=== PATIENT | female | born 1940 | race Caucasian/White ===

== ENCOUNTER 2020-05-01 08:23 | Outpatient (CLI) | payer MEDICARE, SELFPAY ==
--- NOTE | ~2020-05-01 | MM_ITS ---
EXAMINATION: MM screening rena BI w jojo HISTORY: Screening mammogram TECHNIQUE: Craniocaudal and mediolateral oblique 3-D tomosynthesis images were obtained and synthetic 2-D images were generated. CAD analysis was submitted and interpreted. COMPARISON: Comparison to multiple prior studies sequentially, with oldest reviewed study dated 04/14. BREAST PARENCHYMAL COMPOSITION: There are scattered areas of fibroglandular density. FINDINGS: There is developing focal asymmetry in the mid outer aspect of the right breast, best seen on CC view. The left breast is stable without evidence for malignancy. IMPRESSION: 1. Developing right breast asymmetry. 2. Additional mammographic views and possible breast ultrasound are recommended. BI-RADS Category 0: Incomplete: Needs additional imaging evaluation. Reviewed, dictated and finalized at location A. IMPRESSION: 1. Developing right breast asymmetry. 2. Additional mammographic views and possible breast ultrasound are recommended . BI-RADS Category 0: Incomplete: Needs additional imaging evaluation.
== END 2020-05-01 08:24 | disposition home or self-care (01) ==
LOC: ANHIMG 08:30
PROVIDERS: PCP Family Medicine; Visit Provider Obstetrics & Gynecology
DX: Z12.31 Encounter for screening mammogram for malignant neoplasm of breast (principal)
CPT/HCPCS: 77063; 77067

== ENCOUNTER 2020-05-28 13:23 | Outpatient (CLI) | payer MEDICARE, SELFPAY ==
--- NOTE | ~2020-05-28 | MM_ITS ---
EXAMINATION: MM diagnostic mammo unilat RT HISTORY: Right breast asymmetry on screening mammogram TECHNIQUE: Additional 3-D tomosynthesis images of the right breast were performed and synthetic 2-D i mages were generated. CAD analysis was submitted and interpreted. COMPARISON: 05/11/2020, 04/29/2019, 04/27/2018, 05-09, 04/23/2016, 04/18/2015 FINDINGS: Spot compression of the right breast demonstrates a return to normal fibroglandular appeara nce in the area questioned on screening mammogram. There has been no suspicious interval change. No s uspicious mass, calcification, or architectural distortion are identified. IMPRESSION: 1. No mammographic evidence of malignancy. 2. Recommend routine screening mammography in one year. BI-RADS Category 1: Negative Reviewed, dictated and finalized at location A.
== END 2020-05-28 13:24 | disposition home or self-care (01) ==
LOC: ANHIMG 13:27
PROVIDERS: PCP Family Medicine; Visit Provider Obstetrics & Gynecology
DX: R92.8 Other abnormal and inconclusive findings on diagnostic imaging of breast (principal)
CPT/HCPCS: 77065

== ENCOUNTER 2021-06-05 08:35 | Outpatient (CLI) | payer MEDICARE, SELFPAY ==
--- NOTE | ~2021-06-05 | MM_ITS ---
EXAMINATION: MM screening [facility] BI w jojo HISTORY: Screening mammogram TECHNIQUE: Craniocaudal and mediolateral oblique 3-D tomosynthesis images were obtained and synthetic 2-D images were generated. CAD analysis was submitted and interpreted. COMPARISON: 05/28/2020, 05/11/2020, 04/29/2019, 04/27/2018 BREAST PARENCHYMAL COMPOSITION: There are scattered areas of fibroglandular density. FINDINGS: A stable asymmetry in the outer right breast is considered benign given the lack of interva l change. There is no evidence of suspicious mass, calcification, or architectural distortion to sugg est malignancy in either breast. There has been no suspicious interval change. IMPRESSION: 1. No mammographic evidence of malignancy. 2. Recommend routine screening mammography while the patient remains in good health. BI-RADS Category 2: Benign finding(s). Reviewed, dictated and finalized at location A. IMPRESSION: 1. No mammographic evidence of malignancy. 2. Recommend routine screening mammography while the patient remains in good he alth. BI-RADS Category 2: Benign finding(s).
== END 2021-06-05 08:36 | disposition home or self-care (01) ==
LOC: ANHIMG 08:39
PROVIDERS: PCP Family Medicine; Visit Provider Family Medicine
DX: Z12.31 Encounter for screening mammogram for malignant neoplasm of breast (principal)
CPT/HCPCS: 77063; 77067

== ENCOUNTER 2022-06-10 10:05 | Outpatient (CLI) | payer MEDICARE, SELFPAY ==
--- NOTE | ~2022-06-10 | MM_ITS ---
EXAMINATION: MM screening rena BI w jojo HISTORY: Screening TECHNIQUE: Craniocaudal and mediolateral oblique 3-D tomosynthesis images were obtained and synthetic 2-D images were generated. CAD analysis was submitted and interpreted. COMPARISON: Comparison to multiple prior studies sequentially, with oldest reviewed study dated 12/2016. BREAST PARENCHYMAL COMPOSITION: There are scattered areas of fibroglandular density. FINDINGS: There is no evidence of suspicious mass, calcification, or architectural distortion to sugg est malignancy in either breast. There has been no suspicious interval change. IMPRESSION: 1. No mammographic evidence of malignancy. 2. Recommend routine screening mammography in one year. BI-RADS Category 1: Negative Reviewed, dictated and finalized at location A.
== END 2022-06-10 10:06 | disposition home or self-care (01) ==
LOC: ANHIMG 10:06
PROVIDERS: PCP Family Medicine; Visit Provider Family Medicine
DX: Z12.31 Encounter for screening mammogram for malignant neoplasm of breast (principal)
CPT/HCPCS: 77063; 77067

== ENCOUNTER 2023-08-28 07:28 | Outpatient (CLI) | payer MEDICARE, SELFPAY ==
--- NOTE | ~2023-08-28 | MM_ITS ---
EXAMINATION: MM screening rena BI w jojo HISTORY: Screening mammogram TECHNIQUE: Craniocaudal and mediolateral oblique 3-D tomosynthesis images were obtained and synthetic 2-D images were generated. CAD analysis was submitted and interpreted. COMPARISON: 06/10/2022, 06/05/2021, 05/01/2020 BREAST PARENCHYMAL COMPOSITION:There are scattered areas of fibroglandular density. FINDINGS: No suspicious mass, calcification, or architectural distortion are identified in either kamla ast to suggest malignancy. There has been no suspicious interval change. IMPRESSION: No mammographic evidence of malignancy. Recommend routine screening mammography in one year. BI-RADS Category 1: Negative Reviewed, dictated and finalized at location .
== END 2023-08-28 07:29 | disposition home or self-care (01) ==
LOC: ANHIMG 07:30
PROVIDERS: PCP Family Medicine; Visit Provider Nurse Practitioner Family
DX: Z12.31 Encounter for screening mammogram for malignant neoplasm of breast (principal)
CPT/HCPCS: 77063; 77067

== ENCOUNTER 2024-03-11 08:01 | Outpatient (CLI) | payer MEDICARE, SELFPAY ==
[2024-03-11 19:30] LABS: Alanine Aminotransferase 19 U/L (6-35); Albumin Level 4.3 g/dL (3.5-5.1); Alkaline Phosphatase 101 U/L (38-126); Anion Gap 4 mmol/L (4-12); Aspartate Amino Transferase 44 U/L (14-36); Bilirubin,Total 0.7 mg/dL (0.2-1.3); Blood Urea Nitrogen 16 mg/dL (7-17); Calcium 9.2 mg/dL (8.4-10.2); Carbon Dioxide 29 mmol/L (22-30); Chloride 102 mmol/L (98-107); Estimated Glomerular Filt Rate > 60; Glucose 82 mg/dL (65-110); Potassium 4.2 mmol/L (3.4-5.0); Sodium 135 mmol/L (137-145)
[2024-03-11 19:32] LABS: Basophils Percent Auto 0.6 % (0.2-1.2); Eosinophils Absolute Auto 0.3 K/mm3 (0-0.3); Eosinophils Percent Auto 4.7 % (0-4.4); Hematocrit 41.6 % (37.0-47.0); Hemoglobin 13.4 g/dL (12.0-15.0); Immature Granulocyte Absolute 0.01 K/mm3 (0.00-0.031); Immature Granulocyte Percent A 0.2 % (0-0.5); Lymphocytes Percent Auto 29.8 % (18.3-44.2); Mean Corpuscular HGB Conc 32.2 g/dl (32-36); Mean Corpuscular Hemoglobin 30.2 pg (26-34); Mean Corpuscular Volume 93.7 fl (80-100); Mean Platelet Volume 10.3 fl (7.4-10.4); Monocytes Absolute Auto 0.6 K/mm3 (0.1-0.6); Monocytes Percent Auto 10.8 % (2.6-8.5); Neutrophils Absolute Auto 2.9 K/mm3 (1.3-6.7); Neutrophils Percent Auto 53.9 % (45.5-73.1); Platelet Count Result 232 k/mm3 (150-375); Red Blood Count 4.44 M/mm3 (4.2-5.4); Red Cell Distribution Width 13.2 % (11.5-14.5); White Blood Count 5.4 K/mm3 (4.5-10.0)
== END 2024-03-11 08:02 | disposition home or self-care (01) ==
PROVIDERS: PCP Family Medicine; Visit Provider Nurse Practitioner Family
DX: E78.5 Hyperlipidemia, unspecified (principal); I11.0 Hypertensive heart disease with heart failure; I50.42 Chronic combined systolic (congestive) and diastolic (congestive) heart failure; R30.0 Dysuria; R91.8 Other nonspecific abnormal finding of lung field
CPT/HCPCS: 36415; 80053; 85025; 87077; 87086; 87088

== ENCOUNTER 2024-03-21 10:06 | Emergency (ER) | payer MEDICARE, SELFPAY ==
--- NOTE | ~2024-03-21 | CT_ITS ---
EXAMINATION: CT abdomen pelvis w con DATE: 03/21/2024 12:49 INDICATION: Left lower quadrant pain and nausea. TECHNIQUE: Computed tomography (CT) of the abdomen and pelvis was performed with 100 cc Omnipaque 350 intravenous contrast. The dose-length product was 477.20 mGy-cm. Automated exposure control and iter ative reconstruction technique were employed. COMPARISON: None. FINDINGS: Lung bases unremarkable. Cardiomegaly. No significant pleural or pericardial effusion. Smal l hiatal hernia. The liver, spleen, pancreas, adrenal glands and left kidney are unremarkable. There is a small subcentimeter hypodensity of the right kidney, too small to characterize. There are multip le uterine fibroids, largest measuring 4.1 cm. Colonic diverticulosis without evidence for diverticul itis. No ureteral stones or obstruction. Bladder is unremarkable. No free fluid or free air. No signi ficant vascular abnormality. Gallbladder is present. No lymphadenopathy. IMPRESSION: 1. Enlarged fibroid uterus. 2: Small hiatal hernia. Reviewed, dictated and finalized at location B.
[2024-03-21 11:05] VITALS: BP 165/73; PULSE 65; RESP 16; TEMP 36.2; O2SAT 99
[2024-03-21 11:11] VITALS: BP 176/77; PULSE 66; RESP 14; TEMP 37; O2SAT 100
[2024-03-21 11:27] LABS: Basophils Percent Auto 0.4 % (0.2-1.2); Eosinophils Absolute Auto 0.1 K/mm3 (0-0.3); Eosinophils Percent Auto 0.7 % (0-4.4); Hemoglobin 14.5 g/dL (12.0-15.0); Immature Granulocyte Absolute 0.02 K/mm3 (0.00-0.031); Immature Granulocyte Percent A 0.2 % (0-0.5); Lymphocytes Absolute Auto 1.26 K/mm3 (0.9-3.2); Lymphocytes Percent Auto 15.2 % (18.3-44.2); Mean Corpuscular Hemoglobin 30.4 pg (26-34); Mean Corpuscular Volume 92.2 fl (80-100); Mean Platelet Volume 9.4 fl (7.4-10.4); Monocytes Absolute Auto 0.3 K/mm3 (0.1-0.6); Neutrophils Absolute Auto 6.6 K/mm3 (1.3-6.7); Neutrophils Percent Auto 79.5 % (45.5-73.1); Platelet Count Result 254 k/mm3 (150-375); Red Blood Count 4.77 M/mm3 (4.2-5.4); Red Cell Distribution Width 12.7 % (11.5-14.5); White Blood Count 8.3 K/mm3 (4.5-10.0)
[2024-03-21 11:39] LABS: Lactic Acid Reflex 0.9 mmol/L (0.7-2.0)
--- NOTE | 2024-03-21 12:21 | ED.ABDPAIN ---
HPI - Abdominal Pain General Chief Complaint: Abdominal Pain Stated Complaint: abdominal pain Time Seen by Provider: 03/21/24 11:09 Source: patient Mode of arrival: ambulatory Limitations: no limitations History of Present Illness HPI narrative: Patient is an 83-year-old female who presents the ED with report of left-sided abdominal pain. Patient reports having ongoing/intermittent pain over the last 1 month. States it is mostly present throughout her left lower abdomen, radiates to her left side. She states she was seen by her primary care doctor and told she had strep infection and was started on penicillin VK on 03/14. She denies any change in her symptoms since starting the antibiotics. Reports intermittent constipation, but states she had a bowel movement today. Reported mild nausea today, denies vomiting. Denies fevers. Denies urinary complaints. Denies history of diverticulitis. Related Data Home Medications Medication Instructions Recorded Confirmed furosemide 20 mg tablet 20 mg PO DAILY 12/20/19 02/15/24 aspirin 81 mg tablet,delayed 81 mg PO DAILY 07/23/20 02/15/24 release (Adult Low Dose Aspirin) atorvastatin 10 mg tablet 10 mg PO QHS 01/28/22 02/15/24 multivitamin 1 tablet PO DAILY 02/15/24 02/15/24 lactobacillus combination no.9 4 4,000 mmu cells PO DAILY 03/10/24 03/10/24 billion cell capsule (Adult 50 Plus Probiotic) Allergies Allergy/AdvReac Type Severity Reaction Status Date / Time Gadolinium-Containing Allergy Unknown RASH AFTER Verified 03/21/24 10:06 Contrast Medi MRI Review of Systems Review of Systems: CONSTITUTIONAL: Denies fever, chills, or sweats. GASTROINTESTINAL: See HPI. GENITOURINARY: Denies dysuria or hematuria. MUSCULOSKELETAL: See HPI All systems reviewed & are unremarkable except as noted in HPI and below PMFSH Past Medical History Medical History Abdominal cramping Cancer of skin CHF (congestive heart failure) Chronic combined systolic and diastolic CHF (congestive heart failure) Constipation Diverticulitis Dyslipidemia Environmental allergies Essential (primary) hypertension GERD without esophagitis Left bundle branch block LLQ abdominal pain LLQ cramping Mitral valve insufficiency Osteopenia Pre-diabetes Recurrent aphthous ulcer Streptococcus group B infection Surgical History Surgical History History of cardiac cath 12/25/2012 Family History Family History Mother Heart disease Mother Emphysema lung Father Emphysema lung Social History Social History Smoking status: Never smoker Second hand tobacco smoke exposure: No Alcohol intake: never Alcohol use details: 1 glass of wine consumed socially Substance use: never Substance use type: does not use Lack of Transportation: No Lack of Food: Never True Current Housing: I Have Housing Concerned About Future Housing: No Difficulty Paying Gas/Electric Bills: No Difficulty Paying for Meds: No Currently Unemployed: No Difficulty w/ Childcare or Family Care: No Exam Narrative: GENERAL: Elderly, obese with BMI of 31.1, non-toxic, in no acute distress. HEAD: Normocephalic, atraumatic. RESPIRATORY: Airway patent, respirations nonlabored. Clear to auscultation bilaterally, no rales, rhonchi, wheezing. CARDIOVASCULAR: Regular rate and rhythm without murmurs, rubs, or gallops. ABDOMINAL: Soft, no significant tenderness throughout left lower abdomen, no rebound, nondistended. Normoactive BS. MUSCULOSKELETAL: Moves all extremities. No gross deformities. SKIN: Warm, dry, normal color. NEURO: A&O X3. Speech clear. PSYCHIATRIC: Appropriate mood and affect. Normal interaction. Course Vital Signs Vital signs:
[2024-03-21 12:32] LABS: Alanine Aminotransferase 18 U/L (6-35); Albumin Level 4.5 g/dL (3.5-5.1); Alkaline Phosphatase 102 U/L (38-126); Anion Gap 4 mmol/L (4-12); Aspartate Amino Transferase 24 U/L (14-36); Bilirubin,Total 0.6 mg/dL (0.2-1.3); Blood Urea Nitrogen 11 mg/dL (7-17); Calcium 9.8 mg/dL (8.4-10.2); Carbon Dioxide 29 mmol/L (22-30); Chloride 103 mmol/L (98-107); Estimated CRCL calculation 47 ml/min; Estimated Glomerular Filt Rate > 60; Glucose 113 mg/dL (65-110); Lipase 50 U/L (23-300); Potassium 3.8 mmol/L (3.4-5.0); Sodium 136 mmol/L (137-145)
[2024-03-21 12:39] LABS: Appearance Urine Clear (Clear); Bacteria Urine None Seen /hpf; Bilirubin Urine Negative (Negative); Blood Urine Negative (Negative); Color Urine Yellow (Yellow); Glucose Urine UA Negative (Negative); Ketones Urine Negative (Negative); Leukocyte Esterase Ur 1+ LEU/UL (Negative); Nitrate Urine Negative (Negative); Non Pathogenic Casts 0-2; Protein Urine Negative (Negative); RBC Urine 0-2 /hpf (0-2); Specific Grav Ur 1.005 (1.001-1.035); Squamous Epithelial Cell Urine Moderate /hpf (Few); Urobilinogen Urine 0.2 mg/dL (<2.0); pH Urine 7.5 (5.0-9.0)
[2024-03-21 12:50] LABS: Add Urine Microscopic? YES
[2024-03-21 15:05] VITALS: BP 165/64; PULSE 85; RESP 14; TEMP 36.5; O2SAT 100
== END 2024-03-21 15:08 | disposition home or self-care (01) ==
PROVIDERS: Emergency Provider Physician Assistant; PCP Family Medicine
DX: N30.00 Acute cystitis without hematuria (principal); D25.9 Leiomyoma of uterus, unspecified; I50.9 Heart failure, unspecified; I11.0 Hypertensive heart disease with heart failure; I34.0 Nonrheumatic mitral (valve) insufficiency; E78.5 Hyperlipidemia, unspecified; K21.9 Gastro-esophageal reflux disease without esophagitis; M85.80 Other specified disorders of bone density and structure, unspecified site; R73.03 Prediabetes; Z85.828 Personal history of other malignant neoplasm of skin; Z79.82 Long term (current) use of aspirin; K44.9 Diaphragmatic hernia without obstruction or gangrene
CPT/HCPCS: 36415; 74177; 80053; 81001; 83605; 83690; 85025; 87086; 87088; 99284; Q9967

== ENCOUNTER 2024-08-24 10:10 | Outpatient (CLI) | payer MEDICARE, SELFPAY ==
[2024-08-24 19:08] LABS: Basophils Percent Auto 0.6 % (0.2-1.2); Eosinophils Absolute Auto 0.2 K/mm3 (0-0.3); Eosinophils Percent Auto 3.7 % (0-4.4); Hematocrit 40.6 % (37.0-47.0); Hemoglobin 13.1 g/dL (12.0-15.0); Lymphocytes Absolute Auto 1.88 K/mm3 (0.9-3.2); Lymphocytes Percent Auto 30.3 % (18.3-44.2); Mean Corpuscular HGB Conc 32.3 g/dl (32-36); Mean Corpuscular Hemoglobin 30.6 pg (26-34); Mean Corpuscular Volume 94.9 fl (80-100); Monocytes Absolute Auto 0.7 K/mm3 (0.1-0.6); Neutrophils Absolute Auto 3.4 K/mm3 (1.3-6.7); Neutrophils Percent Auto 54.4 % (45.5-73.1); Platelet Count Result 246 k/mm3 (150-375); Red Blood Count 4.28 M/mm3 (4.2-5.4); Red Cell Distribution Width 13.3 % (11.5-14.5); White Blood Count 6.2 K/mm3 (4.5-10.0)
[2024-08-24 19:46] LABS: Alanine Aminotransferase 25 U/L (6-35); Albumin Level 4.1 g/dL (3.5-5.1); Alkaline Phosphatase 107 U/L (38-126); Anion Gap 5 mmol/L (4-12); Aspartate Amino Transferase 41 U/L (14-36); Bilirubin,Total 0.4 mg/dL (0.2-1.3); Blood Urea Nitrogen 13 mg/dL (7-17); Calcium 9.1 mg/dL (8.4-10.2); Carbon Dioxide 31 mmol/L (22-30); Chloride 101 mmol/L (98-107); Cholesterol 156 mg/dL (0-200); Estimated Glomerular Filt Rate > 60; Glucose 84 mg/dL (65-110); HDL Direct 59 mg/dL; LDL Cholesterol Direct 55 mg/dL; Potassium 4.1 mmol/L (3.4-5.0); Sodium 137 mmol/L (137-145); Triglycerides 138 mg/dL (<150)
[2024-08-24 21:18] LABS: Hemoglobin A1C 5.6 % (<5.7)
== END 2024-08-24 10:11 | disposition home or self-care (01) ==
LOC: ANHGOSHLAB 10:11
PROVIDERS: PCP Family Medicine; Visit Provider Nurse Practitioner Family
DX: E78.5 Hyperlipidemia, unspecified (principal); I10 Essential (primary) hypertension; R73.03 Prediabetes; K59.00 Constipation, unspecified
CPT/HCPCS: 36415; 80053; 80061; 83036; 84443; 85025

== ENCOUNTER 2024-08-30 07:34 | Outpatient (CLI) | payer MEDICARE, SELFPAY ==
--- NOTE | ~2024-08-30 | MM_ITS ---
EXAMINATION: MM screening rena BI w jojo HISTORY: Screening TECHNIQUE: Craniocaudal and mediolateral oblique 3-D tomosynthesis images were obtained and synthetic 2-D images were generated. CAD analysis was submitted and interpreted. COMPARISON: Comparison to multiple prior studies sequentially, with oldest reviewed study dated 05/2019. BREAST PARENCHYMAL COMPOSITION: Not dense: There are scattered areas of fibroglandular density. FINDINGS: There is no evidence of suspicious mass, calcification, or architectural distortion to sugg est malignancy in either breast. There has been no suspicious interval change. IMPRESSION: 1. No mammographic evidence of malignancy. 2. Recommend routine screening mammography in one year. BI-RADS Category 1: Negative Reviewed, dictated and finalized at location B.
== END 2024-08-30 07:35 | disposition home or self-care (01) ==
LOC: ANHIMG 07:36
PROVIDERS: PCP Family Medicine; Visit Provider Family Medicine
DX: Z12.31 Encounter for screening mammogram for malignant neoplasm of breast (principal)
CPT/HCPCS: 77063; 77067

== ENCOUNTER 2025-09-26 07:40 | Outpatient (CLI) | payer MEDICARE, SELFPAY ==
--- NOTE | ~2025-09-26 | MM_ITS ---
EXAMINATION: MM screening rena BI w jojo HISTORY: Screening TECHNIQUE: Craniocaudal and mediolateral oblique 3-D tomosynthesis images were obtained and synthetic 2-D images were generated. CAD analysis was submitted and interpreted. COMPARISON: Comparison to multiple prior studies sequentially, with oldest reviewed study dated , 05/01/2020 BREAST PARENCHYMAL COMPOSITION: There are scattered areas of fibroglandular density. FINDINGS: There is no evidence of suspicious mass, calcification, or architectural distortion to suggest malignancy in either breast. IMPRESSION: 1. No mammographic evidence of malignancy. 2. Recommend routine screening mammography in one year. BI-RADS Category 1: Negative Reviewed, dictated and finalized at location B. PICKER
--- OUTSIDE RECORDS SUMMARY | 2025-09-26 07:45 | XMS_ITS | Encounter Summary ---
Author Organization [facility] Healthcare Address [address] [place] [address] Care Team Providers Care Linen Room Worker Name Role Phone Eddi Curran MD Primary Care Provider Encounter Details Date Type Department Care Team (Late st Contact Info) Description 08/24/2024 Orders Only [facility] [place] [address] [place] [id number] Scanning, Provider Social History Tobacco Use Types Packs/Day Years Used Date Smoking Tobacco: Never Smokeless Tobacco: Never Alcohol Use Standard Drinks/Week Comments Yes 0 (1 standard drink = 0.6 oz pur e alcohol) Comments Unknown Sex and Gender Information Value Date Recorded Sex Assigned at Not on file 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
--- OUTSIDE RECORDS SUMMARY | 2025-09-26 07:45 | XMS_ITS | Clinical Summary ---
Author Organization [facility] [place] [address] Address [address] [place] [address] Care Team Providers Care Cloth Burler Name Role Phone Eddi Curran MD Primary Care Provider Allergies Active Allergy Reactions Criticality Noted Date Comments Gadolinium-Containing Contrast Media Hives Medium Medications multivitamin tablet tablet take 1 Tablet by oral route every day with food 0 3 Active acetaminophen (TYLENOL) 325 mg tablet Take 1 tablet (325 mg total) by mouth every 6 (six) hours as needed for pain Active aspirin 81 mg tablet Take 1 tablet (81 mg total) by mouth daily Active omeprazole (PriLOSEC) 20 mg capsule 0 Active metoprolol XL (TOPROL-XL) 100 mg 24 hr tablet Take 0.5 tablets (50 mg total) by mouth daily TAKING 0.5 TABLET BID 2 Active furosemide (LASIX) 20 mg tabletIndications :Essential hypertension TAKE 1 TABLET BY MOUTH DAILY 90 tablet 3 3 Active losartan (COZAAR) 50 mg tablet TAKE 1 TABLET BY MOUTH DAILY 90 tablet 3 5 Active atorvastatin (LIPITOR) 10 mg tablet TAKE 1 TABLET BY MOUTH DAILY 90 tablet 2 5 Active Active Problems Problem Noted Date Diagnosed Date Mixed hyperlipidemia 01/20/2022 Pulmonary HTN (CMS/HCC) 12/17/2018 PVC's (premature ventricular contractions) 12/17 Ventricular bigeminy 12/17/2018 Dizziness 03/16/2018 Dyspnea on exertion 02/12/2017 Overview (04/17/2017): DON (dyspnea on exertion) Mitral valve insufficiency 02/12/2017 Overview (04/17/2017): Mitral valve insufficiency, unspecified etiology Benign hypertension 02/12/2017 Overview (04/17/2017): HTN (hypertension), benign Cardiomyopathy 02/12/2017 Overview (04/17/2017): Nonischemic cardiomyopathy History of fall 02/12/2017 Overview (04/17/2017): Status post fall Left bundle branch block (LBBB) 02/12/2017 Overview (04/17/2017): LBBB (left bundle branch block) Chronic HFrEF (heart failure with reduced ejection fraction) 02/12/2017 Overview (04/17/2017): Chronic combined systolic and diastolic heart failure Resolved Problems Problem Noted Date Diagnosed Date Resolved Date Dyslipidemia 03/16/2018 01/20/2022 Surgical History Surgery Date Site/Laterality Comments OTHER SURGICAL HISTORY 1978 D & C OTHER SURGICAL HISTORY 2007 lipoma removal from back of neck OTHER SURGICAL HISTORY 2005 removal of benign uterine tumor Medical History Medical History Date Comments Osteoarthritis Osteoarthritis; Comments: [facility] 07/07/2014 - Hx Other Medical moderate MR; Co mments: [facility] 07/07/2014 - Hx Other Medical hypertension; C omments: [facility] 07/07/2014 - Hx Other Medical nonischemic car diomyopathy; Comments: [facility] 07/07/2014 - Hx Other Medical dyslipidemia; C omments: [facility] 07/07/2014 - Hx Other Medical D&C; Comments: [facility] 07/07/2014 - Hx Other Medical lipoma excision -neck; Comments: [facility] 07/07/2014 - Hx Other Medical uterine tumor r emoval-benign; Comments: [facility] 07/07/2014 - Hx Other Medical LBBB; Comments: [facility] 07/07/2014 - Family History Medical History Relation Name Comments Heart attack Brother 2 Myocardial Infa rction; Heart failure Mother Congestive Hea rt Failure; Relation Name Status Comments Brother 1 Alive Brother 2 Mother Alive Social History Tobacco Use Types Packs/Day Years Used Date Smoking Tobacco: Never Smokeless Tobacco: Never Tobacco Cessation:Counseling Given: Not Answered Alcohol Use Standard Drinks/Week Comments Yes 0 (1 standard drink = 0.6 oz pur e alcohol) Comments Unknown Sex and Gender Information Value Date Recorded Sex Assigned at Not on file 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 Gender Identity Not on file Sexual Orientation Not on file Last Filed Vital Signs Vital Sign Reading Time Taken Comments Blood Pressure 138/82 03/16/2025 8:36 AM CDT Pulse 73 03/16/2025 8:36 AM CDT Temperature 36.6 C (97.8 F) 05/15/2020 1:01 PM CDT Respiratory Rate - - Oxygen Saturation 98% 03/16/2025 8:36 AM CDT Inhaled Oxygen Concentration - - Weight 74.8 kg (165 lb) 03/16/2025 8:36 AM CDT Height 152.4 cm (5') 03/16/2025 8:36 AM CDT Body Mass Index 32.22 03/16/2025 8:36 AM CDT Plan of Treatment Health Maintenance Due Date Last Done Comments Depression Screening 1940 Fall Risk Assessment 1940 Osteoporosis Screening-Bone Density Scan 1940 DTaP/Tdap/Td Vaccine (1 - Tdap) 1951 Hepatitis B Screening 1958 Zoster Vaccine (1 of 2) 1990 Well Visit 65+ 2005 Pneumococcal vaccine 65+ (2 of 2 - PPSV23, PCV20, or PCV21) 11/02/2018 09/07/2018 Influenza Vaccine (#1) 2025 9, 08/24/2018, 09/21/2017, Additional history [place] [address] MEDICARE [facility] MEDICARE SUPPLEMENT Care Teams Cloth Burler Relationship Specialty Start Date End Date Eddi Curran MD PCP - General Family Practice 05/21/22
--- OUTSIDE RECORDS SUMMARY | 2025-09-26 07:45 | XMS_ITS | Encounter Summary ---
Author Organization [facility] Address [address] [place] [address] Care Team Providers Care Supervisory It Specialist Name Role Phone Marco Gresham Primary Care Provider [phone] Marco Gresham Primary Care Provider [phone] Marco Gresham Primary Care Provider [phone] Eddi Curran MD Primary Care Provider Encounter Details Date Type Department Care Team (Late st Contact Info) Description 02/27/2005 Orders Only [facility] ProviderRose MD [address] [place] [id number] Social History Tobacco Use Types Packs/Day Years Used Date Smoking Tobacco: Never Assessed Comments Unknown Sex and Gender Information Value Date Recorded Sex Assigned at Not on file 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 Historical Provider [facility] JYOTS[facility] WHITFIELD Final Result * CARDIOLOGY REPORT (02/27/2005) Anatomical Region Laterality Modality Other Narrative 02/27/2005 Ordered by an unspecified provider. us Historical Provider [facility] JYOTS[facility] WHITFIELD Final Result documented in this encounter Visit Diagnoses Not on filedocumented in this encounter Care Teams Supervisory It Specialist Relationship Specialty Start Date End Date Marco Gresham [address] [place] [address] PCP - General 02/20/17 09/07/17 Marco Gresham [address] [place] [address] PCP - General 07/20/13 02/19/17 Marco Gresham [address] [place] [address] PCP - General 12/02/12 07/19/13 Eddi Curran MD [address] [place] [address] PCP - General Family Practice 05/21/22 documented as of this encounter
--- OUTSIDE RECORDS SUMMARY | 2025-09-26 07:45 | XMS_ITS | Encounter Summary ---
Author Organization [facility] Address [address] [place] [address] [place] [address] Care Team Providers Care Director Trial Name Role Phone Unavailable Primary Care Provider Unavailabl e Encounter Details Date Type Department Care Team (Late st Contact Info) Description 06/22/2024 Lab Requisition [facility] - DermPath Lab [address] [place] [id number] Brayden Enriquez MD [address] [place], [place] [id number] Social History Tobacco Use Types Packs/Day Years Used Date Smoking Tobacco: Never Assessed Comments Unknown Sex and Gender Information Value Date Recorded Sex Assigned at Not on file Legal Sex Female 5:25 PM GM MOBILE Gender Identity Not on file Sexual Orientation Not on file documented as of this encounter Plan of Treatment Not on file documented as of this encounter Procedures Procedure Name Priority Date/Time Associated Diagnosis Comments DERMATOPATHOLOGY Routine 06/21/2024 12:0 0 AM CDT documented in this encounter Results * DERMATOPATHOLOGY (06/21/2024 12:00 AM CDT) Case Report Dermatopathology Report Case: [id number] Authorizing Provider: Brayden Enriquez MD Collected: 06/21/2024 12:00 AM Ordering Location: [facility] - Received: 06/23/2024 06:19 AM DermPath Lab Pathologist: Keren Santos MD Specimen: Skin, left of superior aspect sternum on the chest 11:29 AM CDT DERMATOPATHOLOGY LABORATORY Final Diagnosis Specimen A. SKIN, left of superior aspect sternum on the chest: ACTINIC KERATOSIS, FOCAL CHANGES (L57.0) BACKGROUND SOLAR LENTIGO AND SEBORRHEIC KERATOSIS (L82.1) (see microscopic description) 11:29 AM T DERMATOPATHOLOGY LABORATORY at 1129 CDT Clinical History R/O Dysplastic nevus vs SK vs ISK 11:29 AM CDT DERMATOPATHOLOGY LABORATORY Gross Description Specimen A: Received is one formalin filled container labeled with the patient's name and designated left of superior aspect sternum on the chest. The specimen consists of a shave biopsy measuring 32a44m9 mm. Jar 0. 11:29 AM T DERMATOPATHOLOGY LABORATORY Microscopic Description Specimen A. SKIN, left of superior aspect sternum on the chest: Sections show skin with solar elastosis. There is a background in which club shaped rete ridges with basilar hyperpigmentation as well as acanthosis and fusion of rete ridges is present. Centrally, keratinocytes with abnormal nuclei form buds that protrude into the papillary dermis with maturation toward a parakeratotic surface. Additional deeper sections were obtained and reviewed. 11:29 AM T DERMATOPATHOLOGY LABORATORY Disclaimer An external and internal positive and negative controls are appropriate for the histochemical, immunohistochemical and immunofluorescence stain(s) in this case (if any), except where stated explicitly. The performance characteristics of the stain(s) cited in this report were developed and its performance characteristic determined by the Dermatopathology Laboratory at [facility], directed by Dr. Melanie Galdamez. These tests need not be, and therefore are not, approved by the [place] Food and Drug Administration. The tests are used for clinical purposes. Billing Codes Specimen Charges Stain Charges 56405 1 11:29 AM CDT DERMATOPATHOLOGY LABORATORY Embedded Images 11:29 AM CDT DERMATOPATHOLOGY LABORATORY Pathology/Cytolog y TISSUE SPECIMEN FROM SKIN / Unknown 06/21/2024 06/23/2024 6:19 AM CDT us Brayden Enriquez MD LAB - PATHOLOGY/CYTOLOGY ORD ERABLES Final Result DERMATOPATHOLOGY LABORATORY [facility] - Department of Dermatology [address], [address] [phone] documented in this encounter Visit Diagnoses Not on filedocumented in this encounter
--- OUTSIDE RECORDS SUMMARY | 2025-09-26 07:45 | XMS_ITS | Encounter Summary ---
Author Organization [facility] Address [address] [facility] [address] [place] [id number] Care Team Providers Care Keno Dealer Name Role Phone Marco Gresham Primary Care Provider [phone] Marco Gresham Primary Care Provider [phone] Eddi Curran MD Primary Care Provider Encounter Details Date Type Department Care Team (Late st Contact Info) Description 02/17/2017 Orders Only [facility] ProviderRose MD [address] [place] [id number] Social History Tobacco Use Types Packs/Day Years Used Date Smoking Tobacco: Never Alcohol Use Standard Drinks/Week Comments Yes 0 (1 standard drink = 0.6 oz pur e alcohol) Comments Unknown Sex and Gender Information Value Date Recorded Sex Assigned at Not on file 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 Historical Provider [facility] JYOTSNA WHITFIELD Final Result documented in this encounter Visit Diagnoses Not on filedocumented in this encounter Care Teams Keno Dealer Relationship Specialty Start Date End Date Marco Gresham [address] [place] [address] PCP - General 02/20/17 09/07/17 Marco Gresham [address] [place] [address] PCP - General 07/20/13 02/19/17 Eddi Curran MD [address] [place] [address] PCP - General Family Practice 05/21/22 documented as of this encounter
--- OUTSIDE RECORDS SUMMARY | 2025-09-26 07:45 | XMS_ITS | Clinical Summary ---
Author Organization [facility] Address [address] [place] [address] Care Team Providers Care Claim Clerk Name Role Phone Unavailable Primary Care Provider Unavailabl e Source Comments [facility],non-owned Affiliates and Associated Physician Practices is amultiple site organization consisting of ambulatory clinics and hospital sitesin [place], [place], [place] and [place]. This disclosure is being madepursuant to the Care Everywhere program and may not contain all information available regarding this patient. 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 Gender Identity Not on file Sexual Orientation Not on file Plan of Treatment Health Maintenance Due Date Last Done Comments BONE DENSITY TESTING 1940 MEDICARE AWV 12 MONTHS 1940 DTAP/TDAP/TD VACCINES (1 - Tdap) 1959 PNEUMOCOCCAL VACCINE 50+ (1 of 1 - PCV) 1990 ZOSTER VACCINE (1 of 2) 1990 Respiratory Syncytial Virus (RSV) Vaccine Pt: or over 60 yrs (1 - 1-dose 75+ series) 2015 DEPRESSION SCREENING 11/23/2024 COVID-19 VACCINE (1 - 2023-2 5 season) 2025 INFLUENZA VACCINE (#1) 2025 HEPATITIS B VACCINE Aged Out No longe r eligible based on patient's age to complete this topic HIB VACCINE Aged Out No longer eligi ble based on patient's age to complete this topic HPV VACCINE Aged Out No longer eligi ble based on patient's age to complete this topic MENINGOCOCCAL (Group B) VACC INE SHARED DECISION-MAKING Aged Out No longer eligibl e based on patient's age to complete this topic MENINGOCOCCAL GROUPS A/C/Y/W VACCINE Aged Out No longer eligible b ased on patient's age to complete this topic [place] [address] MEDICARE [facility]
== END 2025-09-26 07:41 | disposition home or self-care (01) ==
LOC: ANHFOHIMG 07:42
PROVIDERS: PCP Family Medicine; Visit Provider Nurse Practitioner Family
DX: Z12.31 Encounter for screening mammogram for malignant neoplasm of breast (principal)
CPT/HCPCS: 77063; 77067

== ENCOUNTER 2025-10-10 17:36 | Inpatient (IN) | payer MEDICARE, SELFPAY ==
--- NOTE | ~2025-10-10 | CT_ITS ---
EXAM/PROCEDURE: CT lumbar spine wo con HISTORY: back pain COMPARISON: None available. TECHNIQUE: Lumbar spine CT with no contrast FINDINGS: Degenerative changes are present throughout the lumbar spine involving disc spaces and posterior elements. No gross acute or aggressive bony or soft tissue process seen. Degenerative changes most advanced at L4-5 where there is approximately 4 mm of grade 1 anterolisthesis L4 on L5 associated with facet subluxation. Severe hyperostosis of the facets at this level along with broad-based bulging and posterior spondylosis resulting in moderate possibly severe spinal canal stenosis. Borderline spinal calcinosis at L5-S1. Milder changes at levels above. IMPRESSION: 1. Advanced degenerative changes in the lower lumbar spine with moderate possibly severe spinal canal stenosis at L4-5. 2. No gross acute or aggressive bony or soft tissue process seen. 3. Consider correlation with lumbar spine MRI for optimal evaluation as clinically needed. Reviewed, dictated and finalized at location A. EAR REACTOR OPERATOR IMPRESSION: 1. Advanced degenerative changes in the lower lumbar spine with moderate possib ly severe spinal canal stenosis at L4-5. 2. No gross acute or aggressive bony or soft tissue process seen. 3. Consider correlation with lumbar spine MRI for optimal evaluation as clinica lly needed.
--- NOTE | ~2025-10-10 | MR_ITS ---
EXAMINATION: MR brain/brain stem wo con DATE: 10/12/2025 10:42 INDICATION: Stroke presenting with confusion TECHNIQUE: Magnetic resonance imaging (MRI) of the brain and brainstem was performed without intravenous contrast. Sequences included sagittal and axial T1-weighted SE, axial diffusion-weighted FS SE, axial T2*-weighted GRE, axial T2-weighted FLAIR, and axial T2-weighted FSE. Postcontrast axial and coronal T1- weighted SE was obtained. Apparent diffusion coefficient (ADC) maps were created. COMPARISON: None. FINDINGS: There are numerous scattered foci of restricted diffusion with associated increased T2 signal including the in right basal ganglia, bilateral temporal, parietal and frontal and occipital lobes and bilateral cerebellar hemispheres consistent with acute infarctions. The 2 largest regions on the right cerebellum and right occipital lobe with remaining lesions all measuring less than 1 cm. No intracranial hemorrhage or abnormal intracranial mass lesion. There are scattered areas of nonspecific increased T2-weighted signal intensity in the cerebral white matter, predominantly involving the deep and periventricular white matter. There are no intraparenchymal signal abnormalities seen on the other pulse sequences. The ventricles are symmetric and normal in size. There are no abnormal extra-axial fluid collections. Flow voids are seen in the cerebral arteries on the T2-weighted sequences consistent with their expected patency. Changes of bilateral intraocular lens replacement. Minimal amount of dependently layering fluid in the right maxillary sinus. IMPRESSION: 1. Numerous small scattered infarcts scattered throughout the bilateral cerebral hemispheres in the right basal ganglia and bilateral cerebellar hemispheres, the largest in the right occipital lobe and right cerebellar hemisphere. The distribution involving both anterior and posterior circulations on both the left and right would favor a shower of emboli originating at or proximal to the ascending aorta, most likely at the heart. Reviewed, dictated and finalized at location A. R APPLIANCE ASSEMBLY SUPERVISOR IMPRESSION: 1. Numerous small scattered infarcts scattered throughout the bilateral cerebra l hemispheres in the right basal ganglia and bilateral cerebellar hemispheres, the largest in the right occipital lobe and right cerebellar hemisphere. The di stribution involving both anterior and posterior circulations on both the left and right would favor a shower of emboli originating at or proximal to the asce nding aorta, most likely at the heart.
--- NOTE | ~2025-10-10 | CT_ITS ---
CT HEAD NON-CONTRAST Clinical History: headache, weakness Comparison: None Technique: Unenhanced axial images skull base to vertex Coronal, sagittal reformats CT images acquired with automatic exposure control for dose reduction DLP: 681 mGy-cm Findings: Chronic white matter microvascular ischemic changes. Sulci, ventricles: Unremarkable. No intracerebral hemorrhage. No evidence acute territorial infarct. No mass effect, midline shift. Bony calvarium intact. Visualized paranasal sinuses: Clear. Mastoid air cells: Clear. IMPRESSION: 1. No acute intracranial findings. Reviewed, dictated and finalized at location R. SANDER
--- NOTE | ~2025-10-10 | CT_ITS ---
EXAMINATION: CT brain wo con DATE: 10/11/2025 18:04 INDICATION: Altered mental status. Confusion. TECHNIQUE: Computed tomography (CT) of the head was performed without intravenous contrast. The mA was adjusted according to patient size. Iterative reconstruction technique was employed. The dose-length product was 681.00 mGy-cm. COMPARISON: CT brain dated 10/11/2025 at 12:05 aM. FINDINGS: No acute intracranial bleed or extra-axial collections. No CT evidence of acute thrombus of middle cerebral arteries. Chronic ischemic change of periventricular white matter. No acute bone changes IMPRESSION: 1. No acute intracranial lesions in this limited noncontrast examination. If symptoms warrant further evaluation with MRI is suggested. No interval change from previous study of same date. Reviewed, dictated and finalized at location T. K OF SCALES IMPRESSION: 1. No acute intracranial lesions in this limited noncontrast examination. If sy mptoms warrant further evaluation with MRI is suggested. No interval change fro previous study of same date.
--- NOTE | ~2025-10-10 | CT_ITS ---
EXAMINATION: CT abdomen pelvis w con DATE: 10/11/2025 00:19 INDICATION: Abdominal pain. Flank pain. TECHNIQUE: Computed tomography (CT) of the abdomen and pelvis was performed with 100 mL Omnipaque 350 intravenous contrast. Automated exposure control and iterative reconstruction technique were employed. The dose-length product was 1040.89 mGy-cm. COMPARISON: CT abdomen and pelvis 03/21/2024 FINDINGS: The visualized portions of the lung bases demonstrate mild atelectasis. No pleural effusion. Cardiomegaly is noted. No pericardial effusion. There is a small sliding hiatal hernia. A calcification in the liver is consistent with old granulomatous disease. The gallbladder, spleen, pancreas, and adrenal glands are normal. There is cortical thinning of the kidneys. There is 11 mm cyst in right kidney. There are fibroids in the uterus measuring up to 4.6 cm. There is diverticulosis of the colon without evidence of diverticulitis. There are no dilated loops of bowel. The appendix is not visualized. There are no pathologically enlarged lymph nodes. There is no free intraperitoneal fluid. There is severe thoracic and lumbar spondylosis. There is mild chronic anterior wedging of multiple vertebral bodies. IMPRESSION: 1. Small sliding hiatal hernia. 2. Uterine fibroids. Reviewed, dictated and finalized at location E. E DISCHARGE PLANNER
--- NOTE | ~2025-10-10 | XR_ITS ---
Examination: XR chest 1V portable Clinical History: weakness Comparison: None Technique: Portable AP Findings: Cardiomegaly. Lungs clear. No acute bony abnormality. IMPRESSION: 1. No acute cardiopulmonary findings given portable technique. Reviewed, dictated and finalized at location R. CTOR OF PLANT OPERATIONS
[2025-10-10 18:06] VITALS: BP 173/91; PULSE 83; RESP 18; TEMP 36.9; O2SAT 96
[2025-10-10 23:06] LABS: Hematocrit 40.2 % (37.0-47.0); Hemoglobin 13.5 g/dL (12.0-15.0); Immature Granulocyte Percent A 0.3 % (0-0.5); Lymphocytes Absolute Auto 0.88 K/mm3 (0.9-3.2); Mean Corpuscular HGB Conc 33.6 g/dl (32-36); Mean Corpuscular Hemoglobin 30.2 pg (26-34); Mean Corpuscular Volume 89.9 fl (80-100); Nucleated Red Blood Cells Absolute Auto 0.000 K/mm3 (0.0-0.012); Nucleated Red Blood Cells Perc 0.0 % (0.0-0.2); Platelet Count Result 209 k/mm3 (150-375); Red Blood Count 4.47 M/mm3 (4.2-5.4); White Blood Count 9.2 K/mm3 (4.5-10.0)
[2025-10-10 23:13] LABS: Add Urine Microscopic? YES; Appearance Urine Clear (Clear); Glucose Urine UA Negative (Negative); Leukocyte Esterase Ur Negative LEU/UL (Negative); Nitrate Urine Negative (Negative); Non Pathogenic Casts 0-2; Specific Grav Ur 1.019 (1.001-1.035)
[2025-10-10 23:19] LABS: Alanine Aminotransferase 16 U/L (6-35); Albumin Level 4.1 g/dL (3.5-5.1); Alkaline Phosphatase 111 U/L (38-126); Anion Gap 8 mmol/L (4-12); Aspartate Amino Transferase 31 U/L (14-36); Bilirubin,Total 0.9 mg/dL (0.2-1.3); Blood Urea Nitrogen 10 mg/dL (7-17); Calcium 8.9 mg/dL (8.4-10.2); Carbon Dioxide 24 mmol/L (22-30); Chloride 100 mmol/L (98-107); Estimated Glomerular Filt Rate > 60; Glucose 135 mg/dL (65-110); Lipase 32 U/L (23-300); Magnesium 2.1 mg/dL (1.6-2.3); Potassium 4.3 mmol/L (3.4-5.0); Sodium 132 mmol/L (137-145); Total Protein 7.7 g/dL (6.3-8.2)
[2025-10-10 23:32] LABS: NT Pro B Type Natriuretic Pept 5180 pg/mL (19.9-100); Troponin I 1.040 ng/mL (0.000-0.034)
--- NOTE | 2025-10-10 23:32 | ED.GENADULT ---
HPI - General Adult General Chief complaint: Weakness Stated complaint: not feeling well, weak, back pain Time Seen by Provider: 10/10/25 22:04 History of Present Illness HPI narrative: Patient 85-year-old female who presents emergency department chief complaint of not feeling well discomfort in her back patient states that over the last several days she has been weak reports that today she just wanted to lay in bed all day patient states she had some discomfort in her back and reports that she just feels unwell Related Data Home Medications ?Medication ?Instructions ?Recorded ?Confirmed ?Last Taken ?Type aspirin 81 mg tablet,delayed 81 mg PO DAILY 07/23/20 10/06/25 Unknown History release (Adult Low Dose Aspirin) atorvastatin 10 mg tablet 10 mg PO QHS 01/28/22 10/06/25 Unknown History multivitamin 1 tablet PO DAILY 02/15/24 10/06/25 Unknown History lactobacillus combination no.9 4 4,000 mmu cells PO DAILY 03/10/24 10/06/25 Unknown History billion cell capsule (Adult 50 Plus Probiotic) furosemide 20 mg tablet 20 mg PO DAILY PRN 04/12/25 10/06/25 Unknown History metoprolol succinate 100 mg 50 mg PO DAILY 04/12/25 10/06/25 Unknown History tablet,extended release 24 hr omeprazole 20 mg capsule,delayed 20 mg PO DAILY PRN 04/12/25 10/06/25 Unknown History release lactulose 20 gram/30 mL oral 20 g PO BID PRN 10/06/25 10/06/25 Unknown History solution Allergies Allergy/AdvReac Type Severity Reaction Status Date / Time Gadolinium-Containing Allergy Unknown RASH AFTER Verified 10/11/25 00:19 Contrast Medi MRI Review of Systems Review of Systems: A 10 system review of systems was completed on the patient and is negative except for what is stated in the HPI. Nursing and ancillary documentation was reviewed. [facility] Past Medical History Medical History Herpes Uterine fibroid Streptococcus group B infection Constipation Cancer of skin removed from arm 2008, 2010 Osteopenia Diverticulitis CHF (congestive heart failure) Abdominal cramping Mitral valve insufficiency Left bundle branch block Dyslipidemia Essential (primary) hypertension Chronic combined systolic and diastolic CHF (congestive heart failure) Environmental allergies Pre-diabetes GERD without esophagitis Surgical History Surgical History H/O tubal ligation (1976) History of hysteroscopy (03/05/05) DX HSCOPE, ENDOMETRIAL MYOMECTOMY - PMB & LEIOMYOMA UTERI History of cardiac cath 12/25/2012 Family History Family History Mother Heart disease Mother Emphysema lung Father Emphysema lung Social History Social History Smoking status: Never smoker Second hand tobacco smoke exposure: No Alcohol intake: never Alcohol use details: 1 glass of wine consumed socially Substance use: never Substance use type: does not use Do You Feel Safe in your Home?: Yes Lack of Transportation: No Lack of Food: Never True Current Housing: I Have Housing Concerned About Future Housing: No Difficulty Paying Gas/Electric Bills: No Difficulty Paying for Meds: No Currently Unemployed: No Education: High School Diploma/GED Difficulty w/ Childcare or Family Care: No Living arrangements: with family Additional living arrangements comments: Occupation/Education: retired Gender identity (if verbalized by the patient): Female Sexual Orientation (if Verbalized by the Patient): Straight or Heterosexual Agree to blood products: Yes Exam Narrative: GENERAL: Well-appearing, well-nourished, and in no acute distress. HEAD: Normocephalic, atraumatic. EYES: PERRLA and EOMI. ENT: Nares clear, no rhinorrhea or epistaxis. Mucous membranes moist. NECK: Supple. CHEST: Clear to auscultation. No respiratory distress. HEART: Regular rate and rhythm. No murmur heard. Normal peripheral pulses. ABDOMEN: Soft, nontender, nondistended, normal active bowel sounds. EXTREMITIES: Normal range of motion. No edema. SKIN: Warm, dry, no rash. NEURO: No focal deficits. Alert and oriented x3. PSYCH: Normal mood and affect. Course Vital Signs Vital signs: Vital Signs Temperature 36.9 C 10/10/25 18:06 Pulse Rate 83 10/10/25 18:06 Respiratory Rate 18 10/10/25 18:06 Blood Pressure 173/91 H 10/10/25 18:06 Pulse Oximetry 96 10/10/25 18:06 Temperature 36.9 C 10/10/25 18:06 Pulse Rate 83 10/10/25 18:06 Respiratory Rate 18 10/10/25 18:06 Blood Pressure 173/91 H 10/10/25 18:06 Pulse Oximetry 96 10/10/25 18:06 Medical Decision Making MDM Narrative Medical decision making narrative: Differential diagnosis includes UTI, pneumonia, ACS, intra-abdominal infection, EKG showed no acute ischemic changes Initial troponin was elevated at 1.040 BNP is 5180 Vital Signs Vital Signs: Vital Signs Temperature 36.9 C 10/10/25 18:06 Pulse Rate 83 10/10/25 18:06 Respiratory Rate 18 10/10/25 18:06 Blood Pressure 173/91 H 10/10/25 18:06 Pulse Oximetry 96 10/10/25 18:06 Temperature 36.9 C 10/10/25 18:06 Pulse Rate 83 10/10/25 18:06 Respiratory Rate 18 10/10/25 18:06 Blood Pressure 173/91 H 10/10/25 18:06 Pulse Oximetry 96 10/10/25 18:06 Lab Data 10/10/25 22:56 10/10/25 22:56 Labs: Lab Results 10/10/25 Range/Units 22:56 WBC 9.2 (4.5-10.0) K/mm3 RBC 4.47 (4.2-5.4) M/mm3 Hgb 13.5 (12.0-15.0) g/dL Hct 40.2 (37.0-47.0) % MCV 89.9 (80-100) fl MCH 30.2 (26-34) pg MCHC 33.6 (32-36) g/dl RDW 12.6 (11.5-14.5) % Plt Count 209 (150-375) k/mm3 MPV 9.3 (7.4-10.4) fl Immature Gran % (Auto) 0.3 (0-0.5) % Neut % (Auto) 84.1 H (45.5-73.1) % Lymph % (Auto) 9.6 L (18.3-44.2) % [place] % (Auto) 5.7 (2.6-8.5) % Eos % (Auto) 0.1 (0-4.4) % Baso % (Auto) 0.2 (0.2-1.2) % Lymph # (Auto) 0.88 L (0.9-3.2) K/mm3 [place] # (Auto) 0.5 (0.1-0.6) K/mm3 Eos # (Auto) 0.0 (0-0.3) K/mm3 Baso # (Auto) 0.0 (0.0-0.1) K/mm3 Abs Immat Gran (auto) 0.03 (0.00-0.031) K/mm3 Absolute Neuts (auto) 7.7 H (1.3-6.7) K/mm3 Absolute Nucleated RBC 0.000 (0.0-0.012) K/mm3 Nucleated RBC % 0.0 (0.0-0.2) % Sodium 132 L (137-145) mmol/L Potassium 4.3 (3.4-5.0) mmol/L Chloride 100 (98-107) mmol/L Carbon Dioxide 24 (22-30) mmol/L Anion Gap 8 (4-12) mmol/L BUN 10 (7-17) mg/dL Creatinine 0.62 L (0.7-1.0) mg/dL Estim Creat Clear Calc Not Reportable Estimated GFR > 60 (59 - ) Glucose 135 H (65-110) mg/dL Lactic Acid 1.0 (0.7-2.0) mmol/L Calcium 8.9 (8.4-10.2) mg/dL Magnesium 2.1 (1.6-2.3) mg/dL Total Bilirubin 0.9 (0.2-1.3) mg/dL AST 31 (14-36) U/L ALT 16 (6-35) U/L Alkaline Phosphatase 111 (38-126) U/L Troponin I 1.040 H* (0.000-0.034) ng/mL NT-Pro-B Natriuret Pep 5180 H (19.9-100) pg/mL Total Protein 7.7 (6.3-8.2) g/dL Albumin 4.1 (3.5-5.1) g/dL Lipase 32 (23-300) U/L Procalcitonin 0.0 ng/mL Urine Color Yellow (Yellow) Urine Appearance Clear (Clear) Urine pH 6.5 (5.0-9.0) Ur Specific [place] 1.019 (1.001-1.035) Urine Protein 1+ H (Negative) mg/dL Urine Glucose (UA) Negative (Negative) mg/dL Urine Ketones 2+ H (Negative) mg/dL Ur Blood (Man) Negative (Negative) Urine Nitrate Negative (Negative) Urine Bilirubin Negative (Negative) Urine Urobilinogen 0.2 (<2.0) mg/dL Leukocyte Esterase Rfl Negative (Negative) CHATA/UL Urine RBC 0-2 (0-2) /hpf Urine WBC 0-5 (0-3) /hpf Ur Squamous Epith Cells Few (Few) /hpf Urine Bacteria None seen /hpf Urine Casts 0-2 Influenza A (RT-PCR) Negative (Negative) Influenza B (RT-PCR) Negative (Negative) RSV (RT-PCR) Negative (Negative) SARS-CoV-2 RNA (RT-PCR) Negative (Negative) Discharge Plan Discharge Clinical Impression: Non-ST elevation [place] (NSTEMI), Generalized weakness Patient Disposition: Still a Patient Condition: Stable Patient Language: Bangladeshi Prescriptions: No Action Adult 50 Plus Probiotic 4 billion cell capsule 4,000 mmu cells PO DAILY Rx Instructions: administer with a meal metoprolol succinate 100 mg tablet extended release 24 hr 50 mg PO DAILY lactulose 20 gram/30 mL solution 20 g PO BID PRN triamcinolone acetonide 0.5 % ointment 1 applic topical BID Qty: 60 0RF Rx Instructions: apply thin layer twice daily to affected area on chest simethicone 125 mg tablet,chewable 125 mg PO BID Qty: 180 0RF Rx Instructions: after meals atorvastatin 10 mg tablet 10 mg PO QHS furosemide 20 mg tablet 20 mg PO DAILY PRN aspirin [Adult Low Dose Aspirin] 81 mg tablet,delayed release (DR/EC) 81 mg PO DAILY multivitamin Tablet 1 tablet PO DAILY omeprazole 20 mg capsule,delayed release(DR/EC) 20 mg PO DAILY PRN losartan 50 mg tablet 100 mg PO DAILY Qty: 90 1RF Follow-up/Referrals: Bekah Lieberman APRN [Primary Care Provider, [facility]] Time of Disposition: 00:53
[2025-10-10 23:35] LABS: Procalcitonin 0.0 ng/mL
[2025-10-10 23:42] LABS: Influenza A QL RT-PCR Negative (Negative); Influenza B QL RT-PCR Negative (Negative); RSV RNA, RT-PCR Negative (Negative); SARS-CoV-2 RNA PCR Negative (Negative)
[2025-10-10] MEDS: SODIUM CHLORIDE 0.9% IV 1,000 ML 999 ML IV CONT (23:57)
[2025-10-10] MEDS: ASPIRIN 81 MG CHEWABLE TABLET 324 MG PO (23:57)
[2025-10-11] VITALS (20 sets, daily range): BP systolic 142–173; BP diastolic 73–97; PULSE 76–95; RESP 16–24; TEMP 36.4–37.2; O2SAT 90–100; BMI 31.4
--- NOTE | 2025-10-11 01:21 | ECG_ITS ---
Test Date: 2025-10-11 01:33:39 Measurements Intervals [place] Rate: 85 P: 70 ME: 206 QRS: 3 QRSD: 174 T: 157 QT: 440 QTc: 524 Interpretive Statements SINUS RHYTHM POSSIBLE LEFT ATRIAL ENLARGEMENT [-0.1mV P-WAVE IN V1/V2] LEFT BUNDLE BRANCH BLOCK [120+ ms QRS DURATION, 80+ ms Q/S IN V1/V2, 85+ ms R IN I/aVL/V5/V6] ABNORMAL ELECTROCARDIOGRAM No previous ECG available for comparison Electronically Signed On 10-11-2025 07:45:54 MUTUEL TELLER by Qasim Chase M.D.
[2025-10-11 01:46] LABS: INR 1.1; Prothrombin Time 14.7 Seconds (11.1-14.7)
[2025-10-11 01:47] LABS: Partial Thromboplastin Time 37.3 Seconds (22.3-36.8)
[2025-10-11] MEDS: FUROSEMIDE INJ 40 MG/4 ML VIAL IV PUSH ×2 (01:57→08:23)
[2025-10-11] MEDS: HEPARIN SOD/D5W 100 UNITS/ML 25,000 UNITS/250 ML BAG 7 UNITS IV CONT (02:02)
[2025-10-11 02:11] LABS: Hematocrit 39.7 % (37.0-47.0); Hemoglobin 13.5 g/dL (12.0-15.0); Immature Granulocyte Percent A 0.1 % (0-0.5); Lymphocytes Absolute Auto 0.88 K/mm3 (0.9-3.2); Mean Corpuscular HGB Conc 34.0 g/dl (32-36); Mean Corpuscular Hemoglobin 30.5 pg (26-34); Mean Corpuscular Volume 89.6 fl (80-100); Nucleated Red Blood Cells Absolute Auto 0.000 K/mm3 (0.0-0.012); Nucleated Red Blood Cells Perc 0.0 % (0.0-0.2); Platelet Count Result 218 k/mm3 (150-375); Red Blood Count 4.43 M/mm3 (4.2-5.4); White Blood Count 8.6 K/mm3 (4.5-10.0)
--- NOTE | 2025-10-11 02:12 | WPCEDHO ---
ED Hand Off Checklist All vitals saved: Yes IV Site documented: Yes All med administrations documented: Yes Triage Note Triage Note pt to ed via ems with c/o fatigue 10/11/25 00:06 that is not usual for her, patient unable to stand on her own- family states that she normally walks a mile a few times a week. family states that symptoms began early this morning . pt complains of back pain, headache, and weakness Allergies Gadolinium-Containing Contrast Medi Allergy (Unknown, Verified 10/11/25 00:19) RASH AFTER MRI Family History (Last Reviewed 10/10/25 @ 23:33 by Lex Guillaume MD) Mother Heart disease Mother Emphysema lung Father Emphysema lung Active Medications including assessments/comments Heparin Sodium/Dextrose (Heparin Sodium/D5w 100 Units/Ml) 25,000 units in 250 mls @ 7 mls/hr IV CONT .Q24H SAW; Protocol Last Admin: 10/11/25 02:02 Dose: 700 units/hr, 7 mls/hr Documented By: ANTONIA Co-signed By: CHIQUIS Infusion/Titration Document 10/11/25 02:02 ANTONIA (Rec: 10/11/25 02:02 ANTONIA [id number]) Co-signed By Jovany Bullard RN Intake IV Site Peripheral Access Left Antecubital Container Volume 250 Waste Amount 0 Dosing Dose Rate 700 Infusion Rate 7 Increase/Decrease Started Elapsed Time Elapsed Time ( 0m minutes) Heparin Infusion Assessment Document 10/11/25 02:02 ANTONIA (Rec: 10/11/25 02:02 ANTONIA [id number]) Co-signed By Jovany Bullard RN Heparin Infusion Assessment Heparin Infusion Initiated Action MAR Platelet Monitoring Document 10/11/25 02:02 ANTONIA (Rec: 10/11/25 02:02 ANTONIA [id number]) Co-signed By Jovany Bullard RN Platelet Count Verified Platelet Count Yes Verified Administered/Completed Medications Discontinued Medications Aspirin (Aspirin 81 Mg Chewable Tablet) 324 mg PO ONCE STA Stop: 10/10/25 23:33 Last Admin: 10/10/25 23:57 Dose: 324 mg Documented By: ANTONIA Furosemide (Furosemide Inj 40 Mg/4 Ml Vial) 40 mg IV PUSH ONCE STA Stop: 10/11/25 00:52 Last Admin: 10/11/25 01:57 Dose: 40 mg Documented By: ANTONIA Sodium Chloride (Normal Saline Iv) 1,000 mls @ 999 mls/hr IV CONT .Q1H1M STA Stop: 10/10/25 23:20 Last Infusion: 10/11/25 01:10 Dose: Infused Documented By: Admin: 10/10/25 23:57 Dose: 999 mls/hr Documented By: ANTONIA Miscellaneous Information (Pharmacist Communication Order) 1 each XX ONCE ONE Stop: 10/11/25 00:52 Last Admin: 10/11/25 01:10 Dose: Not Given Documented By: ANTONIA Non-Admin Reason: Order Discontinued Miscellaneous Information (Please Enter Patient Weight For Medication Dosing.) 1 each XX CLARIFY SAW Stop: 11/10/25 00:00 Last Admin: 10/11/25 01:08 Dose: Not Given Documented By: ANTONIA Non-Admin Reason: Order Discontinued Interventions/Assessments IV / Saline Lock, Insert Start: 10/10/25 17:37 Freq: Status: Active Protocol: Document 10/10/25 23:57 DJW (Rec: 10/10/25 23:58 DJW [id number]) IV Assessment Peripheral Access Left Antecubital IV Catheter Access Initiated Before Arrival Catheter Gauge 18 IV Site Assessment WNL IV Care and WNL Maintenance PA: Cardiovascular Assessment Start: 10/10/25 17:37 Freq: Status: Active Protocol: Document 10/11/25 00:20 DJW (Rec: 10/11/25 00:21 DJW [id number]) Cardiovascular Assessment Cardiovascular None Symptoms Skin Description Normal Color PA: Neurological Assessment Start: 10/10/25 17:37 Freq: Status: Active Protocol: Document 10/11/25 00:20 DJW (Rec: 10/11/25 00:21 DJW [id number]) Neurological Assessment Level of Alert,Awake Consciousness Arousable to Verbal Orientation Oriented to Person,Oriented to Place,Oriented to Time Neurological Confusion Symptoms Behavior Appropriate,Cooperative Hallucination Type None Patient Able to Comprehend Comprehension Memory Description Intact Facial Symmetry Symmetrical [place] Coma Scale Eyes Open Verbal Oriented and Alert Motor Follows Commands [place] Coma Total 15 Score Last Vital Signs Temperature 98.0 F 10/11/25 00:06 Pulse Rate 95 10/11/25 02:09 Respiratory Rate 24 H 10/11/25 02:09 Pulse Oximetry 100 10/11/25 02:09 Blood Pressure 158/97 H 10/11/25 02:09 Blood Pressure Mean 117 10/11/25 02:09 Blood Pressure Position Supine 10/11/25 00:06 Oxygen Delivery Room Air 10/11/25 00:06 Weight 76.9 kg 10/11/25 00:06 Last Result - Abnormals Only Neut % (Auto) 84.1 % (45.5-73.1) H 10/10/25 22:56 Lymph % (Auto) 9.6 % (18.3-44.2) L 10/10/25 22:56 Lymph # (Auto) 0.88 K/mm3 (0.9-3.2) L 10/10/25 22:56 Absolute Neuts (auto) 7.7 K/mm3 (1.3-6.7) H 10/10/25 22:56 APTT 37.3 Seconds (22.3-36.8) H 10/10/25 22:56 Sodium 132 mmol/L (137-145) L 10/10/25 22:56 Creatinine 0.62 mg/dL (0.7-1.0) L 10/10/25 22:56 Glucose 135 mg/dL (65-110) H 10/10/25 22:56 Troponin I 1.040 ng/mL (0.000-0.034) H* 10/10/25 22:56 NT-Pro-B Natriuret Pep 5180 pg/mL (19.9-100) H 10/10/25 22:56 Urine Protein 1+ mg/dL (Negative) H 10/10/25 22:56 Urine Ketones 2+ mg/dL (Negative) H 10/10/25 22:56 Most Recent Suicide Severity Rating Suicide Severity Rating NO RISK INDICATED 10/11/25 00:06
--- NOTE | 2025-10-11 02:46 | ADMGEN ---
This patient, Joyce Brito, was admitted to IMU Room 205-02. Patient/family oriented to hospital policies and general routines including ID bracelet, bed and alarms, visiting hours, pain management, procedures, bathroom and other care routines, personal items, smoking policy, room service/diet, and visiting hours. Information on how to activate the Rapid Response Team has been discussed. Patient/Family are encouraged to report perceived risks to care and to ask questions if they do not understand what they are told or what they should do.
[2025-10-11 02:49] LABS: Troponin I 1.320 ng/mL (0.000-0.034)
--- NOTE | 2025-10-11 03:44 | PM.IMHP ---
H&P: HPI History of Present Illness Date/Time: 10/11/25 03:44 Chief Complaint: Weakness Narrative: This is an 85-year-old female patient to has a history of hyperlipidemia, congestive heart failure, and hypertension. The patient had generalized weakness and stated that she felt so weak that she did not get out of bed all day. She was having some discomfort in her back and feels unwell. Her sodium is slightly low at 132. She denies any chest discomfort or shortness of breath. Her troponin was 1.040 and 1.32. The patient was started on heparin drip. Cardiology has been consulted. The patient denies any discomfort at this time. However it is difficult to get the patient to answer questions as she is very hard of hearing. EKG was read is sinus rhythm possible left atrial enlargement. Left bundle-branch block. She has some T-wave inversions in lead 1 ST depression in lead 2 with inverted T-wave. Head CT was read as no acute intracranial abnormalities. She was given Lasix in the emergency room and started on heparin drip. The patient is being admitted to observation status on the date of service of 10/11/2025. Review of Systems Constitutional: Constitutional: Reports as per HPI and Reports no additional constitutional complaints Eyes: Eyes: Reports as per HPI and Reports no additional eye complaints ENT: Reports no additional ear, nose, mouth, and throat complaints and Reports Normal hearing present Cardiovascular: Cardiovascular: Reports no additional cardiovascular complaints Respiratory: Respiratory: Reports as per HPI and Reports no additional respiratory complaints Gastrointestinal: Gastrointestinal: Reports as per HPI and Reports no additional gastrointestinal complaints Genitourinary: Genitourinary: Reports no additional female genitourinary complaints Musculoskeletal: Musculoskeletal: Reports no additional musculoskeletal complaints Integumentary/Breasts: Skin/Breast: Reports system reviewed and no additional complaints, except as docu Neurologic: Reports no additional neurologic complaints and Reports Normal hearing present Psychiatric: Psychiatric: Reports no additional psychiatric complaints and Reports as per HPI Hematologic/Lymphatic: Hematologic/Lymphatic: Reports no additional hematologic/lymphatic complaints Allergic/Immunologic: Allergic/Immunologic: Reports no additional allergic/immunologic complaints [facility] Past Medical History Medical History Herpes Uterine fibroid Streptococcus group B infection Constipation Cancer of skin removed from arm 2008, 2010 Osteopenia Diverticulitis CHF (congestive heart failure) Abdominal cramping Mitral valve insufficiency Left bundle branch block Dyslipidemia Essential (primary) hypertension Chronic combined systolic and diastolic CHF (congestive heart failure) Environmental allergies Pre-diabetes GERD without esophagitis Surgical History Surgical History H/O tubal ligation (1976) History of hysteroscopy (03/05/05) DX HSCOPE, ENDOMETRIAL MYOMECTOMY - PMB & LEIOMYOMA UTERI History of cardiac cath 12/25/2012 Family History Family History Mother Heart disease Mother Emphysema lung Father Emphysema lung Social History Social History (Updated 10/11/25 @ 05:41 by Bekah Sanchez APRN) Social History: The patient lives with her and has 3 children. 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 Code status full code Smoking status: Never smoker Second hand tobacco smoke exposure: No Alcohol intake: current Drinks per week: 1 Alcohol use details: 1 glass of wine consumed socially Substance use: never Substance use type: does not use Other substance usage details: wine rarely Do You Feel Safe in your Home?: Yes Lack of Transportation: No Lack of Food: Never True Current Housing: I Have Housing Concerned About Future Housing: No Difficulty Paying Gas/Electric Bills: No Difficulty Paying for Meds: No Currently Unemployed: No Education: High School Diploma/GED Difficulty w/ Childcare or Family Care: No Living arrangements: with family Additional living arrangements comments: Occupation/Education: retired Gender identity (if verbalized by the patient): Female Sexual Orientation (if Verbalized by the Patient): Straight or Heterosexual Spiritual care concerns: No Agree to blood products: Yes Meds Home Medications and Allergies Home Medications ?Medication ?Instructions ?Recorded ?Confirmed ?Type atorvastatin 10 mg tablet 10 mg PO QHS 01/28/22 10/11/25 History losartan 50 mg tablet 100 mg (2 x 50 mg) PO DAILY #90 03/11/23 10/11/25 Rx tabs lactobacillus combination no.9 4 4,000 mmu cells PO DAILY 03/10/24 10/11/25 History billion cell capsule (Adult 50 Plus Probiotic) furosemide 20 mg tablet 20 mg PO DAILY 04/12/25 10/11/25 History metoprolol succinate 100 mg 50 mg PO DAILY 04/12/25 10/11/25 History tablet,extended release 24 hr omeprazole 20 mg capsule,delayed 20 mg PO DAILY 04/12/25 10/11/25 History release simethicone 125 mg chewable tablet 125 mg PO BID #180 tabs 10/06/25 10/11/25 Rx triamcinolone acetonide 0.5 % 1 applic topical BID #60 grams 10/06/25 10/11/25 Rx topical ointment Allergies Allergy/AdvReac Type Severity Reaction Status Date / Time Gadolinium-Containing Allergy Unknown RASH AFTER Verified 10/11/25 00:19 Contrast Medi MRI Vital Signs Vital Signs - 24 hr 10/10/25 18:06 10/11/25 00:06 10/11/25 02:09 Temperature 98.4 F 98.0 F Pulse Rate 83 93 95 Respiratory Rate 18 21 H 24 H Blood Pressure 173/91 H 142/84 H 158/97 H Pulse Oximetry 96 99 100 Oxygen Delivery Room Air 10/11/25 02:53 10/11/25 03:10 Temperature 98.0 F Pulse Rate 86 92 Respiratory Rate 24 H 21 H Blood Pressure 173/75 H 143/84 H Pulse Oximetry 99 100 Oxygen Delivery Exam Const: General: cooperative, healthy appearing, comfortable, no acute distress, well developed, awake, Physically active, average body habitus and well nourished Nutritional Appearance: average body habitus and well nourished Orientation/consciousness: oriented to person and oriented to place Other: She is a poor historian HENMT: Head: normal to inspection, No palpable skull fracture present, normocephalic, atraumatic and abrasion Other: She is very hard of hearing bilaterally. Eyes: General: appearance normal, both eyes and all related structures Alignment and Position: alignment normal Periorbital: periorbital findings normal Eyelids: eyelids normal Neck: Neck: normal visual inspection, full ROM and no lymphadenopathy Chest: Chest palpation & inspection: normal inspection of the chest Resp: Effort & Inspection: normal respiratory effort Auscultation: clear to auscultation bilaterally Cardio: Palpation: normal PMI Rate: regular rate Rhythm: regular rhythm Heart sounds: S1 normal heart sound present and S2 normal heart sound present Peripheral pulses: Peripheral pulses 2+ throughout GI: Inspection: normal to inspection Percussion: Yes normal to percussion Auscultation: normal bowel sounds Rectal Exam: deferred Back/Spine/Pelvis: Back: no CVA tenderness Skin: General skin exam: normal color Lesions: no lesions Rashes: no rashes Trauma: no lacerations or abrasions Wounds: no wounds Hair: normal Nails: normal Neuro: General: oriented to person, oriented to place and oriented to time Cranial nerves: Yes Normal hearing present Speech: normal speech Extrem: General: normal to inspection Right upper extremity: normal to inspection and shoulder/upper arm Left upper extremity: normal to inspection and shoulder/upper arm Right lower extremity: normal to inspection Left lower extremity: normal to inspection Psych: Appearance: grossly normal Mental Status: mental status grossly normal Speech and movement: Normal speech and movement present Affect: normal affect Attitude: cooperative H&P: Results Labs Labs: Short CBC 10/10/25 10/11/25 Range/Units 22:56 02:05 WBC 9.2 8.6 (4.5-10.0) K/mm3 Hgb 13.5 13.5 (12.0-15.0) g/dL Hct 40.2 39.7 (37.0-47.0) % Plt Count 209 218 (150-375) k/mm3 BMP 10/10/25 22:56 Sodium 132 L Potassium 4.3 Chloride 100 Carbon Dioxide 24 BUN 10 Creatinine 0.62 L Glucose 135 H Calcium 8.9 Cardiac Enzymes 10/10/25 10/11/25 Range/Units 22:56 02:05 Troponin I 1.040 H* 1.320 H* D (0.000-0.034) ng/mL Liver Function 10/10/25 Range/Units 22:56 Total Bilirubin 0.9 (0.2-1.3) mg/dL AST 31 (14-36) U/L ALT 16 (6-35) U/L Alkaline Phosphatase 111 (38-126) U/L Albumin 4.1 (3.5-5.1) g/dL Urine 10/10/25 Range/Units 22:56 Urine Color Yellow (Yellow) Urine Appearance Clear (Clear) Urine pH 6.5 (5.0-9.0) Ur Specific [place] 1.019 (1.001-1.035) Urine Protein 1+ H (Negative) mg/dL Urine Glucose (UA) Negative (Negative) mg/dL ECG Interpretation: 5 MD 206 QRSd 174 QT 440 QTc 524 --[place]-- P 70 QRS 3 T 157 SINUS RHYTHM POSSIBLE LEFT ATRIAL ENLARGEMENT [-0.1mV P-WAVE IN V1/V2] LEFT BUNDLE BRANCH BLOCK [120+ ms QRS DURATION, 80+ ms Q/S IN V1/V2, 85+ ms R IN I/aVL/V5/V6] No previous ECG available for comparison Assessment and Plan Assessment and plan (1) Non-ST elevation [place] (NSTEMI): Code(s): I21.4 - Non-ST elevation (NSTEMI) myocardial infarction Status: Acute
--- OUTSIDE RECORDS SUMMARY | 2025-10-11 04:12 | XMS_ITS | Clinical Summary ---
Author Organization [facility] Address [address] [place] [address] Care Team Providers Care Night Court Magistrate Name Role Phone Unavailable Primary Care Provider Unavailabl e Source Comments [facility],non-owned Affiliates and Associated Physician Practices is amultiple site organization consisting of ambulatory clinics and hospital sitesin [place], [place], [place] and [place]. This disclosure is being madepursuant to the Care Everywhere program and may not contain all information available regarding this patient. 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
--- OUTSIDE RECORDS SUMMARY | 2025-10-11 04:13 | XMS_ITS | Encounter Summary ---
Author Organization [facility] Address [address] [place] [address] Care Team Providers Care Gold Buyer Name Role Phone Eddi Curran MD Primary Care Provider Encounter Details Date Type Department Care Team (Late st Contact Info) Description 08/24/2024 Orders Only [facility] Information Management [address] [place] [id number] Scanning, Provider Social History Tobacco Use Types Packs/Day Years Used Date Smoking Tobacco: Never Smokeless Tobacco: Never Alcohol Use Standard Drinks/Week Comments Yes 0 (1 standard drink = 0.6 oz pur e alcohol) Comments Unknown Sex and Gender Information Value Date Recorded Sex Assigned at Not on file 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
--- OUTSIDE RECORDS SUMMARY | 2025-10-11 04:13 | XMS_ITS | Encounter Summary ---
Author Organization [facility] Address [address] [place] [address] Care Team Providers Care Grommet Worker Name Role Phone Marco Gresham Primary Care Provider [phone] Marco Gresham Primary Care Provider [phone] Eddi Curran MD Primary Care Provider Encounter Details Date Type Department Care Team (Late st Contact Info) Description 02/17/2017 Orders Only [facility] ProviderRose MD [address] [place] [address] Social History Tobacco Use Types Packs/Day Years Used Date Smoking Tobacco: Never Alcohol Use Standard Drinks/Week Comments Yes 0 (1 standard drink = 0.6 oz pur e alcohol) Comments Unknown Sex and Gender Information Value Date Recorded Sex Assigned at Not on file 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
--- OUTSIDE RECORDS SUMMARY | 2025-10-11 04:13 | XMS_ITS | Encounter Summary ---
Author Organization [facility] Address [address] [place] [address] Care Team Providers Care Animal Care Technician Name Role Phone Marco Gresham Primary Care Provider [phone] Marco Gresham Primary Care Provider [phone] Marco Gresham Primary Care Provider [phone] Eddi Curran MD Primary Care Provider Encounter Details Date Type Department Care Team (Late st Contact Info) Description 02/27/2005 Orders Only [facility] ProviderRose MD [address] [place] [address] Social History Tobacco Use Types Packs/Day Years Used Date Smoking Tobacco: Never Assessed Comments Unknown Sex and Gender Information Value Date Recorded Sex Assigned at Not on file 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 Gender Identity Not on file Sexual Orientation [...] on filedocumented in this encounter Care Teams Animal Care Technician Relationship Specialty Start Date End Date Marco Gresham [address] [place] [address] PCP - General 02/20/17 09/07/17 Marco Gresham [address] [place] [address] PCP - General 07/20/13 02/19/17 Marco Gresham [address] [place] [address] PCP - General 12/02/12 07/19/13 Eddi Curran MD [address] [place] [address] PCP - General Family Practice 05/21/22 documented as of this encounter
--- OUTSIDE RECORDS SUMMARY | 2025-10-11 04:13 | XMS_ITS | Encounter Summary ---
Author Organization [facility] Address [address] [place] [address] [place] [address] Care Team Providers Care Shop And Alteration Tailor Name Role Phone Unavailable Primary Care Provider Unavailabl e Encounter Details Date Type Department Care Team (Late st Contact Info) Description 06/22/2024 Lab Requisition [facility] - DermPath Lab [address] [place] [id number] Brayden Enriquez MD [address] [place], [place] [id number] Social History Tobacco Use Types Packs/Day Years Used Date Smoking Tobacco: Never Assessed Comments Unknown Sex and Gender Information Value Date Recorded Sex Assigned at Not on file 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 Gender Identity Not on file Sexual Orientation Not on file documented as of this encounter Plan of Treatment Not on file documented as of this encounter Procedures Procedure Name Priority Date/Time Associated Diagnosis Comments DERMATOPATHOLOGY Routine 06/21/2024 12:0 0 AM CDT documented in this encounter Results * DERMATOPATHOLOGY (06/21/2024 12:00 AM CDT) Case Report Dermatopathology Report Case: [id number] Authorizing Provider: Brayden Enriquez MD Collected: 06/21/2024 12:00 AM Ordering Location: [facility] - Received: 06/23/2024 06:19 AM [...] specimen consists of a shave biopsy measuring [id number] mm. Jar 0. 11:29 AM T DERMATOPATHOLOGY [...] characteristic determined by the Dermatopathology Laboratory at [facility], directed by Dr. Melanie Galdamez. These tests need not be, and therefore are not, approved by the [place] Food and Drug Administration. The tests are used for clinical purposes. Billing Codes Specimen Charges Stain Charges 88442 1 11:29 AM CDT DERMATOPATHOLOGY LABORATORY Embedded Images 11:29 AM CDT DERMATOPATHOLOGY LABORATORY Pathology/Cytolog y TISSUE SPECIMEN FROM SKIN / Unknown 06/21/2024 06/23/2024 6:19 AM CDT us Brayden Enriquez MD LAB - PATHOLOGY/CYTOLOGY ORD ERABLES Final Result DERMATOPATHOLOGY LABORATORY [facility] - Department of Dermatology [address] [phone] documented in this encounter Visit Diagnoses Not on filedocumented in this encounter
--- OUTSIDE RECORDS SUMMARY | 2025-10-11 04:13 | XMS_ITS | Clinical Summary ---
Author Organization [facility] [address] Address [address] [place] [address] Care Team Providers Care Qa Architect Name Role Phone Eddi Curran MD Primary [...] Medical History Date Comments Osteoarthritis Osteoarthritis; Comments: [facility] 07/07/2014 - Hx Other Medical moderate MR; Co mments: [facility] 07/07/2014 - Hx Other Medical hypertension; C omments: [facility] 07/07/2014 - Hx Other Medical nonischemic car diomyopathy; Comments: [facility] 07/07/2014 - Hx Other Medical dyslipidemia; C omments: [facility] 07/07/2014 - Hx Other Medical D&C; Comments: [facility] 07/07/2014 - Hx Other Medical lipoma excision -neck; Comments: [facility] 07/07/2014 - Hx Other Medical uterine tumor r emoval-benign; Comments: [facility] 07/07/2014 - Hx Other Medical LBBB; Comments: [facility] 07/07/2014 - Family History Medical History Relation [...] on file 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
[2025-10-11 07:26] LABS: Magnesium 2.1 mg/dL (1.6-2.3)
[2025-10-11 07:27] LABS: Partial Thromboplastin Time 46.2 Seconds (22.3-36.8)
[2025-10-11 07:43] LABS: Troponin I 1.330 ng/mL (0.000-0.034)
[2025-10-11 07:56] LABS: Thyroid Stimulating Hormone Reflex 3.150 uIU/mL (0.465-4.68)
[2025-10-11] MEDS: METOPROLOL SUCCINATE EXT REL 50 MG TABCR PO (08:23)
[2025-10-11] MEDS: PANTOPRAZOLE 40 MG TABLET PO (08:23)
[2025-10-11] MEDS: LOSARTAN POTASSIUM 50 MG TABLET 100 MG PO (08:23)
--- NOTE | 2025-10-11 08:24 | ECG_ITS ---
Test Date: 2025-10-11 10:55:02 Measurements Intervals [place] Rate: 76 P: 20 NH: 201 QRS: -22 QRSD: 174 T: 146 QT: 455 QTc: 512 Interpretive Statements SINUS RHYTHM LEFT BUNDLE BRANCH BLOCK [120+ ms QRS DURATION, 80+ ms Q/S IN V1/V2, 85+ ms R IN I/aVL/V5/V6] ABNORMAL ECG Compared to ECG 10/11/2025 01:33:39 No significant changes Electronically Signed On 10-11-2025 17:10:34 [employer] by Juarez Lares M.D.
--- NOTE | 2025-10-11 08:38 | P.CONCA_ITS ---
Assessment and Plan Assessment and plan (1) Non-ST elevation [place] (NSTEMI): Code(s): I21.4 - Non-ST elevation (NSTEMI) myocardial infarction Status: Acute Assessment and Plan: * patient presents with c/o weakness and low back pain * no reports of any chest pain or pressure, no shortness of breath * her troponin were noted to be elevated at 1.4, 1.32, 1.33-despite elevation they are flat and no rise and fall consistent with ACS-may represent demand ischemia in setting of dilated CMP * her EKG does demonstrate a LBBB but this is not new * remote history of cardiac cath in 2012 that was negative for CAD * She is currently on a heparin drip at this time and will continue until echo completed and reviewed * will repeat echocardiogram to look for any wall motion abnormality * can consider ischemic evaluation pending echo results * at this time would manage medically (2) Chronic combined systolic and diastolic CHF (congestive heart failure): Code(s): I50.42 - Chronic combined systolic (congestive) and diastolic (congestive) heart failure Status: Acute Assessment and Plan: * acute on chronic severe systolic dysfunction * EF of 25-30% per last echo in 2022-repeat is pending * she was found to have an elevated pBNP of 5180 on admission * her CXR however, was without acute cardiopulmonary process and patient lying flat in bed without issue * Can continue IV lasix today, but would consider PO lasix 40 mg daily in am * monitor renal function and electrolytes closely with diuresis * will continue her losartan 100 mg daily and Metoprolol 50 mg daily (3) Mitral valve insufficiency: Qualifiers: Cardiac valve disease etiology: nonrheumatic Qualified Code(s): I34.0 - Nonrheumatic mitral (valve) insufficiency Code(s): I34.0 - Nonrheumatic mitral (valve) insufficiency Status: Acute Assessment and Plan: * moderate mitral regurgitation on last echo * will repeat (4) Left bundle branch block: Code(s): I44.7 - Left bundle-branch block, unspecified Status: Acute Assessment and Plan: * this is not new and unchanged (5) Essential (primary) hypertension: Code(s): I10 - Essential (primary) hypertension Status: Acute Assessment and Plan: * blood pressure above goal * would give home meds and monitor * If BP remains elevated consider changing Metoprolol to coreg for better BP control (6) Dyslipidemia: Code(s): E78.5 - Hyperlipidemia, unspecified Status: Acute Assessment and Plan: * on atorvastatin 10 mg daily at home (7) Generalized weakness: Code(s): R53.1 - Weakness Status: Acute Assessment and Plan: * presents with generalized weakness and low back pain * etiology unclear at this time * CT head with no acute process * UA negative for UTI * CT abd/pelvis with no acute finding * may need further neuro evaluation if persistent weakness and confusion Plan * continue heparin at this time * will update 2D echo * continue diuresis * blood pressure control * further recommendations pending echo findings. Update 1400: Echo reviewed and EF unchanged from previous and no noted wall motion abnormality. Her chief complaint of low back pain/weakness/confusion do not suggest ACS despite elevation in troponin. This was discussed with Dr. Reis, will stop heparin drip and continue GDMT for her cardiomyopathy. Can continue therapeutic lovenox in setting of elevated troponin x 24 hours as having trouble with blood draws and normal renal function. History of Present Illness History of Present Illness Consult date/time: 10/11/25 08:38 Requesting physician: Bekah Sanchez APRN Consult reason: shortness of breath Reason For Visit: STEMI, generalized weakness, CHF Narrative: Joyce Brito is an 85 y.o. female with a PMH of NICMP, HTN, HLD and chronic venous insufficiency. She presented to the ER with c/o low back pain. She states she felt as though her back was twisted and she could not move d/t pain. She is typically very active walking 1-2 miles a day, but could not d/t the pain. She on arrival to the ER had labs that demonstrated an elevated troponin and pBNP for which we were consulted. Patient however, was lying flat in bed this am with an oxygen saturation of 98% and denies any shortness of breath. She denies any chest pain or pressure. No dizziness or palpiations. Her biggest concern at this time is her low back pain. Review of Systems 2 Review of Systems: All systems reviewed & are unremarkable except as noted in HPI and below PMFSH Past Medical History Medical History Herpes Uterine fibroid Streptococcus group B infection Constipation Cancer of skin removed from arm 2008, 2010 Osteopenia Diverticulitis CHF (congestive heart failure) 11/23.2011 Abdominal cramping Mitral valve insufficiency Left bundle branch block Dyslipidemia Essential (primary) hypertension Chronic combined systolic and diastolic CHF (congestive heart failure) Environmental allergies Pre-diabetes GERD without esophagitis Surgical History Surgical History H/O tubal ligation (1976) History of hysteroscopy (03/05/05) DX HSCOPE, ENDOMETRIAL MYOMECTOMY - PMB & LEIOMYOMA UTERI History of cardiac cath 12/25/2012 Family History Family History Mother Heart disease Mother Emphysema lung Father Emphysema lung Social History Social History (Updated 10/11/25 @ 05:41 by Bekah Sanchez APRN) Social History: The patient lives with her and has 3 children. 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 Code status full code Smoking status: Never smoker Second hand tobacco smoke exposure: No Alcohol intake: current Drinks per week: 1 Alcohol use details: 1 glass of wine consumed socially Substance use: never Substance use type: does not use Other substance usage details: wine rarely Do You Feel Safe in your Home?: Yes Lack of Transportation: No Lack of Food: Never True Current Housing: I Have Housing Concerned About Future Housing: No Difficulty Paying Gas/Electric Bills: No Difficulty Paying for Meds: No Currently Unemployed: No Education: High School Diploma/GED Difficulty w/ Childcare or Family Care: No Living arrangements: with family Additional living arrangements comments: Occupation/Education: retired Gender identity (if verbalized by the patient): Female Sexual Orientation (if Verbalized by the Patient): Straight or Heterosexual Spiritual care concerns: No Agree to blood products: Yes Meds Home Medications and Allergies Home Medications ?Medication ?Instructions ?Recorded ?Confirmed ?Type atorvastatin 10 mg tablet 10 mg PO QHS 01/28/22 History losartan 50 mg tablet 100 mg (2 x 50 mg) PO DAILY #90 03/11/23 10/11/25 Rx tabs lactobacillus combination no.9 4 4,000 mmu cells PO DA JACLYN 03/10/24 10/11/25 History billion cell capsule (Adult 50 Plus Probiotic) furosemide 20 mg tablet 20 mg PO DAILY 04/12/2509/23 History metoprolol succinate 100 mg 50 mg PO DAILY 04/12/25 History tablet,extended release 24 hr omeprazole 20 mg capsule,delayed 20 mg PO DAILY 10/11/25 History release simethicone 125 mg chewable tablet 125 mg PO BID #180 tabs 10/06/25 10/11/25 Rx triamcinolone acetonide 0.5 % 1 applic topical BID #60 grams 10/06/25 10/11/25 Rx topical ointment Allergies Allergy/AdvReac Type Severity Reaction Status Date / Time Gadolinium-Containing Allergy Unknown RASH AFTER Verified 10/11/25 05:50 Contrast Medi MRI Vital Signs Vital Signs - 24 hr 10/10/25 18:06 10/11/25 00:06 10/11/25 02:09 Temperature 36.9 C 36.7 C Pulse Rate 83 93 95 Respiratory Rate 18 21 H 24 H Blood Pressure 173/91 H 142/84 H 158/97 H Pulse Oximetry 96 99 100 Oxygen Delivery Room Air 10/11/25 02:53 10/11/25 03:10 10/11/25 04:00 Temperature 36.7 C Pulse Rate 86 92 Respiratory Rate 24 H 21 H Blood Pressure 173/75 H 143/84 H Pulse Oximetry 99 100 100 Oxygen Delivery Room Air 10/11/25 04:00 10/11/25 04:00 10/11/25 05:50 Temperature 36.9 C Pulse Rate 83 81 86 Respiratory Rate 24 H Blood Pressure 165/81 H Pulse Oximetry 100 Oxygen Delivery 10/11/25 07:39 10/11/25 08:00 10/11/25 08:00 Temperature 37.2 C Pulse Rate 88 88 Respiratory Rate 24 H 24 H Blood Pressure 152/83 H Pulse Oximetry 90 94 94 Oxygen Delivery Room Air Room Air 10/11/25 08:00 10/11/25 08:23 Temperature Pulse Rate 92 92 Respiratory Rate Blood Pressure Pulse Oximetry Oxygen Delivery Exam 2 Const: General: uncomfortable; No in distress Eyes: Sclera: sclerae normal Neck: Neck: not supple and No no JVD Thyroid: thyroid normal Carotids: n o bruits Resp: Effort & Inspection: normal respiratory effort Auscultation: clear to auscultation bilaterally Cardio: Rate: tachycardic Rhythm: regular rhythm Heart sounds: no gallops, no murmurs and no rubs Skin: General skin exam: normal color and no erythema Neuro: Speech: normal speech Extrem: General: no edema and no pedal edema Psych: Mental Status: mental status grossly normal Results Labs and Meds 10/11/25 02:05 10/10/25 22:56 Lab results: Cardiac Enzymes 10/10/25 10/11/25 10/11/25 Range/Units 22:56 02:05 07:00 AST 31 (14-36) U/L Troponin I 1.040 H* 1.320 H* D 1.330 H* (0.000-0.034) ng/mL Coagulation 10/10/25 10/11/25 Range/Units 22:56 07:00 PT 14.7 (11.1-14.7) Seconds APTT 37.3 H 46.2 H (22.3-36.8) Seconds CBC 10/10/25 10/11/25 Range/Units 22:56 02:05 WBC 9.2 8.6 (4.5-10.0) K/mm3 RBC 4.47 4.43 (4.2-5.4) M/mm3 Hgb 13.5 13.5 (12.0-15.0) g/dL Hct 40.2 39.7 (37.0-47.0) % Plt Count 209 218 (150-375) k/mm3 Lymph # (Auto) 0.88 L 0.88 L (0.9-3.2) K/mm3 Roberts # (Auto) 0.5 0.6 (0.1-0.6) K/mm3 Eos # (Auto) 0.0 0.0 (0-0.3) K/mm3 Baso # (Auto) 0.0 0.0 (0.0-0.1) K/mm3 Comprehensive Metabolic Panel 10/10/25 Range/Units 22:56 Sodium 132 L (137-145) mmol/L Potassium 4.3 (3.4-5.0) mmol/L Chloride 100 (98-107) mmol/L Carbon Dioxide 24 (22-30) mmol/L BUN 10 (7-17) mg/dL Creatinine 0.62 L (0.7-1.0) mg/dL Glucose 135 H (65-110) mg/dL Calcium 8.9 (8.4-10.2) mg/dL AST 31 (14-36) U/L ALT 16 (6-35) U/L Alkaline Phosphatase 111 (38-126) U/L Total Protein 7.7 (6.3-8.2) g/dL Albumin 4.1 (3.5-5.1) g/dL Intake and Output 10/10/25 10/11/25 10/11/25 23:59 07:59 15:59 Intake Total 1040.7 Output Total 1780 Balance -739.3 Intake: IV 1040.7 Heparin Sod/D5w 100 Units/ml 25 40.7 ,000 units In 250 ml @ 700 UNITS/HR 7 mls/hr IV CONT .Q24H SAW Rx#:[id number] Sodium Chloride 0.9% IV 1,000 1000 ml @ 999 mls/hr IV CONT .Q1H1M STA Rx#:[id number] Oral 0 Output: Urine 1780 Other: Number of Bowel Movements Today 0 Patient Weight 10/11/25 23:59 Weight 75.4 kg Imaging and Cardiology Echo: report reviewed (12/2022-EF of 25-30% with severe global LV dysfunction, mod LAE, mild LVH, moderate MR, mild TR and mild [place] ) Cardiac cath: report reviewed (2012 no obstructive CAD ) EKG results: image reviewed EKG Interpretation EKG: sinus rhythm EKG shows: sinus rhythm (rate of 85 bpm with LBBB )
[2025-10-11] MEDS: ASPIRIN 81 MG CHEWABLE TABLET PO (09:00)
--- NOTE | 2025-10-11 11:17 | ECHO_ITS ---
Patient Info Name: Joyce Brito Age: 85 years : 1940 Gender: Female Ht: 61 in Wt: 166 lbs BSA: 1.83 m2 BP: 165 / 81 mmHg Heart Rhythm: Sinus Rhythm Technical Quality: Good Exam Date: 10/11/2025 10:02 AM Patient Status: I Admit Date: 10/11/2025 Exam Type: CA echo dop color flow w con Complete two-dimensional, color flow and Doppler transthoracic echocardiogram is performed with contrast to opacify the left ventricle and to improve the deliniation of the left ventricle endocardial borders. Staff Referring Physician: Ursula Collier Aircraft Structural Repairer: Kathryn Etienne Attending Provider: Bryan Hung Contrast/Agitated Saline Contrast/Ag. Saline: Definity Amount: 2.00 ml Summary 1. Left ventricular hypertrophy with mild LV enlargement and reduced systolic function ejection fraction visually estimated 30-35%. 2. Grade 1 diastolic noncompliance. 3. Sclerotic but not stenotic aortic valve. 4. Mitral annular calcium. 5. Compared to echocardiogram from January of 2023 the findings are similar. Left Ventricle Left ventricular chamber dimension is mildly enlarged. Left ventricular systolic function is severely reduced, estimated at 30-35. There is mild concentric increased left ventricular wall thickness. Left ventricular septal wall motion is abnormal with septal motion related to bundle branch block. The left ventricular diastolic function is grade I diastolic dysfunction. Right Ventricle Right ventricular chamber dimension is normal. Left Atria Left atrial chamber dimension is mildly enlarged. Right Atria Right atrial chamber dimension is normal. Aortic Valve The aortic valve is trileaflet. There is mild aortic valve sclerosis. Pulmonic Valve The pulmonic valve is normal. There is mild pulmonic regurgitation. Mitral Valve The mitral valve has normal leaflets. There is trace mitral valve regurgitation. The mitral valve annulus is moderately calcified. Tricuspid Valve The tricuspid valve leaflets are normal. Pericardium/Pleural The pericardium appears normal. Aorta The aortic root size at the sinus of Valsalva is normal. Left Ventricular Outflow Tract Name Value Normal LVOT 2D LVOT Diameter 2.0 cm LVOT Doppler LVOT Peak Velocity 123 cm/s LVOT Peak Gradient 6 mmHg LVOT Mean Gradient 3 mmHg LVOT VTI 22 cm LVOT Stroke Volume 68 ml LVOT CO 5.1 l/min LVOT CI 2.8 l/min/m2 Pulmonic Valve Name Value Normal RVOT Doppler RVOT Peak Velocity 131 cm/s RVOT Peak Gradient 7 mmHg PV Doppler PV Peak Velocity 160 cm/s PV Peak Gradient 10 mmHg Mitral Valve Name Value Normal MV Diastolic Function MV E Peak Velocity 125 cm/s MV A Peak Velocity 48 cm/s MV E/A 2.6 MV Decel Time (PW) 128 ms MV Annular TDI MV E/e' (Septal) 18.2 MV E/e' (Lateral) 8.9 MV E/e' (Average) 13.5 Tricuspid Valve Name Value Normal TV Regurgitation Doppler TR Peak Velocity 282 cm/s TR Peak Gradient 32 mmHg Aortic Valve Name Value Normal AV Doppler AV Peak Velocity 168 cm/s AV Peak Gradient 11 mmHg AV Area (Cont Eq Elliott) 2.2 cm2 AV DI (Elliott) 0.73 AV Regurgitation 2D LVOT Area 3.0 cm2 Ventricles Name Value Normal LV Dimensions 2D/MM LVOT Diameter 2.0 cm LV Fractional Shortening/Ejection Fraction 2D/MM LV Diastolic Volume (4C MOD) 185 ml LV EF (4C MOD) 17 % LV Diastolic Volume (2C MOD) 130 ml LV EF (2C MOD) 25 % LV Diastolic Volume (BP MOD) 155 ml 46-106 LV Diastolic Volume Index (BP MOD) 85 ml/m2 29-61 LV Systolic Volume (BP MOD) 128 ml 14-42 LV Systolic Volume Index (BP MOD) 70 ml/m2 8-24 LV EF (BP MOD) 17 % 54-74 LV Diastolic Length (4C) 9.1 cm LV Systolic Length (4C) 8.8 cm LV Stroke Volume (4C MOD) 32 ml Atria Name Value Normal LA Dimensions LA Volume (4C A-L) 71 ml LA Volume (BP A-L) 84 ml RA Dimensions RA Systolic Major Timpson Length (4C) 5.2 cm 2.2-2.8 RA Area (4C) 13.4 cm2 <=18.0 Report Signatures
[2025-10-11] MEDS: PERFLUTREN LIPID MICROSPHERES 1.5 ML VIAL DILUTED TO 10 ML TOTAL VOLUME IV PUSH (11:52)
--- NOTE | 2025-10-11 11:52 | IVDEFINITY ---
Prior to administration of IV Definity the patient was educated on the risks and benefits of the imaging enhancing agent including potential adverse side effects. The patient verbalized understanding. Allergies were verified. No exclusion criteria were identified and at least one of the following inclusion criteria were met: 1) physician request, 2) patient technically difficult to image (per the [place] [employer]chocardi[employer] guidelines of two or more segments not discernable within the apical view), or 3) questionable left ventricular function. ?
--- NOTE | 2025-10-11 13:33 | P.PNIM_ITS ---
Progress Note: A&P Assessment and Plan (1) Non-ST elevation [place] (NSTEMI): Code(s): I21.4 - Non-ST elevation (NSTEMI) myocardial infarction Status: Acute (2) Generalized weakness: Code(s): R53.1 - Weakness Status: Acute (3) Back pain: Code(s): M54.9 - Dorsalgia, unspecified Status: Acute Plan 85-year-old female patient to has a history of hyperlipidemia, congestive heart failure, and hypertension, presented with generalized weakness, back pain.EKG was read is sinus rhythm possible left atrial enlargement. Left bundle-branch block. She has some T-wave inversions in lead 1 ST depression in lead 2 with inverted T-wave. Head CT was read as no acute intracranial abnormalities. Was started on heparin drip. Admitted for further workup. Cardiology was consulted. 1.(1) Non-ST elevation FL (NSTEMI): Continue with tele monitoring her troponin were noted to be elevated at 1.4, 1.32, 1.33- her EKG does demonstrate a LBBB but this is not new Plan to continue with heparin drip Await echocardiogram History of combined systolic and diastolic CHF Elevated proBNP of 5 180 Continue with IV Lasix Continue with metoprolol and losartan Continue with aspirin and statin 2. Lower back pain: CT abdomen was unremarkable Will obtain a dedicated CT lumbar spine UA was negative for UTI CT head with no acute process 3. DVT prophylaxis: On heparin drip 4. Code status: Full 5. Disposition: Pending improvement Time Spent With Patient Time: 39 minutes Subjective Date/time seen: 10/11/25 13:33 Interval history: Complains of back pain Denies chest pain Review of Systems Review of Systems: All systems reviewed & are unremarkable except as noted in HPI and below Exam Const: General: cooperative and comfortable Orientation/consciousness: oriented to person and oriented to place HENMT: Head: normal to inspection, normocephalic and atraumatic Other: She is very hard of hearing bilaterally. Eyes: General: appearance normal, both eyes and all related structures Eyelids: eyelids normal Neck: Neck: full ROM Chest: Chest palpation & inspection: normal inspection of the chest Resp: Auscultation: clear to auscultation bilaterally Cardio: Rate: regular rate Rhythm: regular rhythm GI: Inspection: normal to inspection Auscultation: normal bowel sounds Back/Spine/Pelvis: Back: no CVA tenderness Skin: General skin exam: normal color Neuro: General: oriented to person, oriented to place and oriented to time Extrem: General: normal to inspection Psych: Appearance: grossly normal Mental Status: mental status grossly normal Objective Data Vital Signs Vital Signs: Vital Signs - 24 hr 10/10/25 18:06 10/11/25 00:06 10/11/25 02:09 Temperature 98.4 F 98.0 F Pulse Rate 83 93 95 Respiratory Rate 18 21 H 24 H Blood Pressure 173/91 H 142/84 H 158/97 H Pulse Oximetry 96 99 100 Oxygen Delivery Room Air 10/11/25 02:53 10/11/25 03:10 10/11/25 04:00 Temperature 98.0 F Pulse Rate 86 92 Respiratory Rate 24 H 21 H Blood Pressure 173/75 H 143/84 H Pulse Oximetry 99 100 100 Oxygen Delivery Room Air 10/11/25 04:00 10/11/25 04:00 10/11/25 05:50 Temperature 98.4 F Pulse Rate 83 81 86 Respiratory Rate 24 H Blood Pressure 165/81 H Pulse Oximetry 100 Oxygen Delivery 10/11/25 07:39 10/11/25 08:00 10/11/25 08:00 Temperature 99.0 F Pulse Rate 88 88 Respiratory Rate 24 H 24 H Blood Pressure 152/83 H Pulse Oximetry 90 94 94 Oxygen Delivery Room Air Room Air 10/11/25 08:00 10/11/25 08:23 10/11/25 10:00 Temperature Pulse Rate 92 92 76 Respiratory Rate Blood Pressure Pulse Oximetry Oxygen Delivery 10/11/25 12:00 10/11/25 12:00 10/11/25 12:25 Temperature 97.5 F L Pulse Rate 91 91 82 Respiratory Rate 18 18 Blood Pressure 148/80 H Pulse Oximetry 100 100 Oxygen Delivery Room Air Intake/Output Intake/Output: Intake & Output 10/08/25 10/09/25 10/10/25 10/11/25 23:59 23:59 23:59 23:59 Intake Total 1040.7 Output Total 1780 Balance -739.3 Meds/Results Medications: Active Medications Generic Name Dose Route Start Last Admin Trade Name Freq PRN Reason Stop Dose Admin Aspirin 81 mg 10/11/25 08:00 10/11/25 09:00 Aspirin 81 Mg Chewable Tablet PO 81 mg DAILY@0800 SAW Administration Atorvastatin Calcium 80 mg 10/11/25 21:00 Atorvastatin 40 Mg Tablet PO QHS SAW Furosemide 40 mg 10/11/25 09:00 10/11/25 08:23 Furosemide Inj 40 Mg/4 Ml Vial IV PUSH 40 mg Q12HR SAW Administration Heparin Sodium (Porcine) 4,000 units 10/11/25 00:51 10/11/25 07:51 Heparin Sodium 5,000 Units/Ml Vial IV PUSH 4,000 units PRN PRN Administration aPTT less than 55 seconds Heparin Sodium (Porcine) 2,500 units 10/11/25 00:51 Heparin Sodium 5,000 Units/Ml Vial IV PUSH PRN PRN aPTT 55 - 70 seconds Heparin Sodium/Dextrose 25,000 units in 250 mls @ 9 mls/hr 10/11/25 00:55 10/11/25 07:51 Heparin Sodium/D5w 100 Units/Ml IV CONT 900 units/hr .Q24H SAW 9 mls/hr Protocol Titration 900 UNITS/HR Losartan Potassium 100 mg 10/11/25 09:00 10/11/25 08:23 Losartan Potassium 50 Mg Tablet PO 100 mg DAILY SAW Administration Metoprolol Succinate 50 mg 10/11/25 09:00 10/11/25 08:23 Metoprolol Succinate Ext Rel 50 Mg Tabcr PO 50 mg DAILY SAW Administration Ondansetron HCl 4 mg 10/11/25 00:51 Ondansetron Inj 4 Mg/2 Ml Vial IV PUSH Q4H PRN Nausea Pantoprazole Sodium 40 mg 10/11/25 09:00 10/11/25 08:23 Pantoprazole 40 Mg Tablet PO 40 mg QAM SAW Administration Perflutren Lipid Microsphere 0 ml 10/11/25 11:17 Perflutren Lipid Microspheres 1.5 Ml Vial Diluted To 10 Ml Total Volume IV PUSH 10/14/25 11:17 ONCE PRN adequate visualization Protocol Radiology Results: ITS Impressions Abdomen/Pelvis CT 10/11/25 07:08 IMPRESSION: 1. Small sliding hiatal hernia. 2. Uterine fibroids. Head CT 10/11/25 07:18 IMPRESSION: 1. No acute intracranial findings. Chest X-Ray 10/11/25 07:29 IMPRESSION: 1. No acute cardiopulmonary findings given portable technique. Labs Labs: Laboratory Results - last 24 hr 10/10/25 10/11/25 10/11/25 22:56 02:05 07:00 WBC 9.2 8.6 RBC 4.47 4.43 Hgb 13.5 13.5 Hct 40.2 39.7 MCV 89.9 89.6 MCH 30.2 30.5 MCHC 33.6 34.0 RDW 12.6 12.7 Plt Count 209 218 MPV 9.3 9.2 Immature Gran % (Auto) 0.3 0.1 Neut % (Auto) 84.1 H 82.0 H Lymph % (Auto) 9.6 L 10.2 L [place] % (Auto) 5.7 7.3 Eos % (Auto) 0.1 0.2 Baso % (Auto) 0.2 0.2 Lymph # (Auto) 0.88 L 0.88 L [place] # (Auto) 0.5 0.6 Eos # (Auto) 0.0 0.0 Baso # (Auto) 0.0 0.0 Abs Immat Gran (auto) 0.03 0.01 Absolute Neuts (auto) 7.7 H 7.1 H Absolute Nucleated RBC 0.000 0.000 Nucleated RBC % 0.0 0.0 PT 14.7 INR 1.1 APTT 37.3 H 46.2 H Sodium 132 L Potassium 4.3 Chloride 100 Carbon Dioxide 24 Anion Gap 8 BUN 10 Creatinine 0.62 L Estim Creat Clear Calc Not Reportable Estimated GFR > 60 Glucose 135 H Lactic Acid 1.0 Calcium 8.9 Magnesium 2.1 2.1 Total Bilirubin 0.9 AST 31 ALT 16 Alkaline Phosphatase 111 Troponin I 1.040 H* 1.320 H* D 1.330 H* NT-Pro-B Natriuret Pep 5180 H Total Protein 7.7 Albumin 4.1 Lipase 32 Procalcitonin 0.0 TSH (Reflex) 3.150 Urine Color Yellow Urine Appearance Clear Urine pH 6.5 Ur Specific [place] 1.019 Urine Protein 1+ H Urine Glucose (UA) Negative Urine Ketones 2+ H Ur Blood (Man) Negative Urine Nitrate Negative Urine Bilirubin Negative Urine Urobilinogen 0.2 Leukocyte Esterase Rfl Negative Urine RBC 0-2 Urine WBC 0-5 Ur Squamous Epith Cells Few Urine Bacteria None seen Urine Casts 0-2 Influenza A (RT-PCR) Negative Influenza B (RT-PCR) Negative RSV (RT-PCR) Negative SARS-CoV-2 RNA (RT-PCR) Negative Quality VTE Prophylaxis VTE prophylaxis: pharmacologic ordered
[2025-10-11 14:23] LABS: Partial Thromboplastin Time 137.7 Seconds (22.3-36.8)
--- NOTE | 2025-10-11 18:41 | PC.NURSE ---
Patient family member came to get this RN at approximately 1650pm stating that the patient is more confused and not able to recognize either her or her son. This RN went into the room to assess patient and she appeared to be confused, looking up at the ceiling with a blank stare. With conversation the patient came around to a normal state. This RN called the MD to report findings. STAT CT of brain was ordered. Upon returning from the CT scan the patient was noted to be looking up at the ceiling, to the right side. When asked what she is looking at she states I am day dreaming about my grandkids. This RN asked the patient the ages of grandkids and she is able to answer questions appropriately according to family. When asked the patient who her family members in the room were, the patient appeared as if she could not see them. Eventually she noticed her daughter and stated That is my sweet daughter. When this RN asked who the other family member in the room is, sitting in the chair in front of her the patient could not see anyone. This RN pointed to the gentleman in the room and at first she appeared confused asking where and then stated Its Chris, my son. During this assessment the patient appeared to go in and out of periods of vision loss. This RN did a full NIH assessment and the patient did pass, except that it was noted that in her left eye she was not as responsive with reflexes. Her peripheral vision appeared to be off at times as well. This RN called the MD to report findings and asked him to come to the bedside to do a full assessment as her neurological assessment is not consistent. Family states that to their knowledge she did not fall and hit her head at home and has no history of seizures, althought states that she does have a history or migraines. This information was provided to the MD. The MD arrived to the bedside and did a full neurologic assessment. Family remains at the bedside at this time.
--- NOTE | 2025-10-11 19:09 | PM.EVENT ---
Event Note Event Note Event Note: Nursing staff called to notify me around 615 p.m. regarding bizarre behavior/stroke-like symptoms for the patient. According to the nursing team, the patient was lying on her right side around 5:30 p.m. and did not respond to questions. Also, they reported there was evidence of peripheral vision loss. The patient did not recognize her son who was sitting in front of her. The patient was immediately taken to a CT scan, which was negative. During my evaluation, patient's daughter and son were present. According to them, the patient lives with her father, is independent, and performs all her activities independently, including driving. Unfortunately, they recognized a change in her behavior from yesterday and brought her to the hospital for further evaluation. In the ED, the patient had elevated troponin and a left bundle branch block, which had been noted previously, and was started on heparin. Cardiology evaluated the patient, ruled out ACS, and stopped heparin, started a therapeutic dose of Lovenox. During my evaluation, the patient was AO x4 and NIH score 0. During my evaluation, the patient exhibited bizarre behavior, including staring and appearing pleasantly confused. I called [facility] at 6.50 p.m. and spoke with . He reported pt will benefit from transferring for continuous EEG monitoring and further workup, but does not need TPK. He also recommended permissive hypertension.I ordered brain MRI, Neurology consult, neurochecks Q 4 hours. I stopped a therapeutic dose of Lovenox. Patient's family agrees with the plan
[2025-10-11] MEDS: ACETAMINOPHEN 325 MG TABLET 650 MG PO (19:58)
[2025-10-11] MEDS: OLANZapine 5 MG, WATER, STERILE FOR INJECTION 2.1 ML IM (21:36)
[2025-10-12] VITALS (14 sets, daily range): BP systolic 126–149; BP diastolic 56–84; PULSE 71–97; RESP 16–20; TEMP 36.7–36.8; O2SAT 92–100
[2025-10-12 04:25] LABS: Hematocrit 44.7 % (37.0-47.0); Hemoglobin 14.8 g/dL (12.0-15.0); Immature Granulocyte Percent A 0.3 % (0-0.5); Lymphocytes Absolute Auto 1.91 K/mm3 (0.9-3.2); Mean Corpuscular HGB Conc 33.1 g/dl (32-36); Mean Corpuscular Hemoglobin 30.7 pg (26-34); Mean Corpuscular Volume 92.7 fl (80-100); Nucleated Red Blood Cells Absolute Auto 0.000 K/mm3 (0.0-0.012); Nucleated Red Blood Cells Perc 0.0 % (0.0-0.2); Platelet Count Result 232 k/mm3 (150-375); Red Blood Count 4.82 M/mm3 (4.2-5.4); White Blood Count 10.1 K/mm3 (4.5-10.0)
[2025-10-12 04:38] LABS: Anion Gap 10 mmol/L (4-12); Blood Urea Nitrogen 19 mg/dL (7-17); Calcium 9.5 mg/dL (8.4-10.2); Carbon Dioxide 23 mmol/L (22-30); Chloride 100 mmol/L (98-107); Estimated CRCL calculation 42 ml/min; Estimated Glomerular Filt Rate > 60; Glucose 101 mg/dL (65-110); Potassium 4.1 mmol/L (3.4-5.0); Sodium 133 mmol/L (137-145)
[2025-10-12] MEDS: METOPROLOL SUCCINATE EXT REL 50 MG TABCR PO (09:14)
[2025-10-12] MEDS: ASPIRIN 81 MG CHEWABLE TABLET PO (09:14)
[2025-10-12] MEDS: FUROSEMIDE INJ 40 MG/4 ML VIAL IV PUSH (09:15)
[2025-10-12] MEDS: PANTOPRAZOLE 40 MG TABLET PO (09:15)
--- NOTE | 2025-10-12 12:08 | PC.NURSE ---
DR MEYERS AND DR ARMSTRONG MADE AWARE OF PT CONTRAST ALLERGY FOR STAT HEAD AND NECK CTA. DR MEYERS TO PUT IN PREMEDICATION ORDERS FOR CTA. WILL NOT BE ABLE TO COMPLETE CTA FOR 13 HRS DUE TO PREMEDICATION ORDERS. DR ARMSTRONG VERBALIZED UNDERSTANDING.
--- NOTE | 2025-10-12 12:12 | WPDNEURCNPN ---
Assessment and Plan Assessment and plan (1) Acute cerebrovascular accident (CVA): Code(s): I63.9 - Cerebral infarction, unspecified Status: Acute Assessment and Plan: the patient's mental status could well be due to the multiple strokes noted although the possibility of focal seizure as a result of the stroke will still be a consideration and we should observe her. Since the infarcts were noted in both cerebral hemispheres and also in the anterior posterior circulation a cardiac source must be explored. Echocardiogram did not show any significant findings and possibly a transesophageal echocardiogram and prolonged cardiac monitoring may be helpful particular to identify any cardiac arrhythmias. I would also suggest a CT angiogram head and neck. I believe that she has allergy to dye and hence she will be given some premedication before the CT angio was done later on [facility]. Renal functions are normal. Supportive care is recommended. she is currently on heparin drip besides atorvastatin 80 mg a day and aspirin 81 mg a day. I would suggest to continue the same and monitor her vital signs closely. (2) Essential (primary) hypertension: Code(s): I10 - Essential (primary) hypertension Status: Acute (3) Chronic combined systolic and diastolic CHF (congestive heart failure): Code(s): I50.42 - Chronic combined systolic (congestive) and diastolic (congestive) heart failure Status: Acute (4) Mitral valve insufficiency: Qualifiers: Cardiac valve disease etiology: nonrheumatic Qualified Code(s): I34.0 - Nonrheumatic mitral (valve) insufficiency Code(s): I34.0 - Nonrheumatic mitral (valve) insufficiency Status: Acute (5) Non-ST elevation KS (NSTEMI): Code(s): I21.4 - Non-ST elevation (NSTEMI) myocardial infarction Status: Acute (6) Pre-diabetes: Code(s): R73.03 - Prediabetes Status: Acute Plan As discussed above in view of the new onset stroke she will require follow-up for her blood pressure and mental status. If she has any signs of seizure we can cover her with anticonvulsants. There is some suspicion of that in view of the in changes in mental status noted during the course of examination and also cited by her daughters. She has multiple infarcts the largest of that is in the right cerebellar area and right occipital area. I have explained the findings to the patient's daughters and mack petersen. Neurology will follow. Consult date: 10/12/25 HPI: Joyce Brito is a 85 year old femaleCame into the hospital 2 days ago with complaints of weakness and pain in the lower back. She has history of cardiac disease. Her O2 levels were high and she was consulted with a surgical garment fitter. Echocardiogram shows ejection fraction of 30-35%. BNP was very high at 5180. Last night and also in the late afternoon she became suddenly very confused. Family members came in to be is in support. To the daughter's and her were sitting by her side when I came to see her this morning. Patient appears to have intermittent hallucinations and seeing things on the curtain. Previously she was seeing things on the roof and staring blankly. According to the daughter she is very active person who walks 2 miles a day 4 days a week and also drives and takes care of her things and fairly active and family and social life. There is no prior history of memory problems. Last LDL on 09/12/2024 was 55. Last vitamin B12 on in [address] scan of brain was performed yesterday which did not show any acute findings. MRI of the brain was performed which shows significant abnormal findings this morning the findings we discussed below. The patient also hard of hearing and much of the interview was with the help of her family members and also being close to her years. She does not offer any specific history at this time. 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 2010 Osteopenia Diverticulitis CHF (congestive heart failure) 11/23.2011 Abdominal cramping Mitral valve insufficiency Left bundle branch block Dyslipidemia Essential (primary) hypertension Chronic combined systolic and diastolic CHF (congestive heart failure) Environmental allergies Pre-diabetes GERD without esophagitis Surgical History Surgical History H/O tubal ligation (1976) History of hysteroscopy (03/05/05) DX HSCOPE, 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 Code status full code Smoking status: Never smoker Second hand tobacco smoke exposure: No Alcohol intake: current Drinks per week: 1 Alcohol use details: 1 glass of wine consumed socially Substance use: never Substance use type: does not use Other substance usage details: wine rarely Do You Feel Safe in your Home?: Yes Lack of Transportation: No Lack of Food: Never True Current Housing: I Have Housing Concerned About Future Housing: No Difficulty Paying Gas/Electric Bills: No Difficulty Paying for Meds: No Currently Unemployed: No Education: High School Diploma/GED Difficulty w/ Childcare or Family Care: No Living arrangements: with family Additional living arrangements comments: Occupation/Education: retired Gender identity (if verbalized by the patient): Female Sexual Orientation (if Verbalized by the Patient): Straight or Heterosexual Spiritual care concerns: No Agree to blood products: Yes Meds Home Medications and Allergies Home Medications ?Medication ?Instructions ?Recorded ?Confirmed ?Type atorvastatin 10 mg tablet 10 mg PO QHS 01/28/22 10/11/25 History losartan 50 mg tablet 100 mg (2 x 50 mg) PO DAILY #90 03/11/23 10/11/25 Rx tabs lactobacillus combination no.9 4 4,000 mmu cells PO DAILY 03/10/24 10/11/25 History billion cell capsule (Adult 50 Plus Probiotic) furosemide 20 mg tablet 20 mg PO DAILY 04/12/25 10/11/25 History metoprolol succinate 100 mg 50 mg PO DAILY 04/12/25 10/11/25 History tablet,extended release 24 hr omeprazole 20 mg capsule,delayed 20 mg PO DAILY 04/12/25 10/11/25 History release simethicone 125 mg chewable tablet 125 mg PO BID #180 tabs 10/06/25 10/11/25 Rx triamcinolone acetonide 0.5 % 1 applic topical BID #60 grams 10/06/25 10/11/25 Rx topical ointment Allergies Allergy/AdvReac Type Severity Reaction Status Date / Time Iodinated Contrast Media Allergy Hives Verified 10/12/25 12:12 Vital Signs Vital Signs - 24 hr 10/11/25 12:25 10/11/25 14:00 10/11/25 16:00 Temperature 97.5 F L Pulse Rate 82 86 94 Respiratory Rate 18 18 Blood Pressure 148/80 H Pulse Oximetry 100 93 Oxygen Delivery Room Air 10/11/25 16:00 10/11/25 16:20 10/11/25 18:00 Temperature 98.1 F Pulse Rate 94 87 90 Respiratory Rate 18 Blood Pressure 150/80 H Pulse Oximetry 93 Oxygen Delivery 10/11/25 19:54 10/11/25 20:00 10/11/25 20:00 Temperature 97.8 F Pulse Rate 84 90 Respiratory Rate 16 Blood Pressure 151/75 H Pulse Oximetry 94 Oxygen Delivery Room Air 10/11/25 22:00 10/11/25 23:01 10/11/25 23:53 Temperature 98 F Pulse Rate 88 83 Respiratory Rate 20 Blood Pressure 168/73 H Pulse Oximetry 95 Oxygen Delivery Room Air 10/12/25 00:00 10/12/25 02:00 10/12/25 04:00 Temperature Pulse Rate 71 74 88 Respiratory Rate 20 Blood Pressure Pulse Oximetry 96 Oxygen Delivery Room Air 10/12/25 04:00 10/12/25 06:00 10/12/25 08:00 Temperature Pulse Rate 72 74 86 Respiratory Rate Blood Pressure Pulse Oximetry Oxygen Delivery 10/12/25 08:17 10/12/25 09:14 10/12/25 10:00 Temperature 98.1 F Pulse Rate 87 97 96 Respiratory Rate 16 Blood Pressure 149/84 H Pulse Oximetry 100 Oxygen Delivery Exam Narrative: Patient is fully conscious alert. She is able to tell me the month and the year however her 3 object recall was /3. she was able to tell me the town she lives in as well as the state. She sending a distracted looking towards occurred in and a was back to partially cooperate. Able to follow commands very well. Examination head and neck shows no evidence of external trauma. No nuchal rigidity. No carotid bruit. Cranial nerves pupils are equal reactive. Visual horton appear to within acceptable normal range. There is no definite facial asymmetry. Tongue was midline. Other cranial nerves were grossly within normal limits however she is hard of hearing. Motor system she appears to have mild weakness in the left upper limb and also intention tremor noted in the left upper limb. She appears to have near normal strength in both lower limbs and right upper limb. Deep tendon reflexes did not show any significant asymmetry. Sensory examination was grossly within normal range. No involuntary movements are seen. Results Labs 10/12/25 03:53 10/12/25 03:53 Labs: Short CBC 10/12/25 Range/Units 03:53 WBC 10.1 H (4.5-10.0) K/mm3 Hgb 14.8 (12.0-15.0) g/dL Hct 44.7 (37.0-47.0) % Plt Count 232 (150-375) k/mm3 BMP 10/12/25 03:53 Sodium 133 L Potassium 4.1 Chloride 100 Carbon Dioxide 23 BUN 19 H Creatinine 0.80 Glucose 101 Calcium 9.5 Imaging Attestation: I personally reviewed and interpreted this imaging study as follows: ( CT scan of brain performed twice yesterday did not show any acute abnormalities. An MRI of the brain performed this morning shows diffusion defect in the largest in the right cerebellar area and right occipital area multiple smaller infarcts in both cerebral hemispheres.) Radiologist's impression: EXAMINATION: MR brain/brain stem wo con DATE: 10/12/2025 10:42 INDICATION: Stroke presenting with confusion TECHNIQUE: Magnetic resonance imaging (MRI) of the brain and brainstem was performed without intravenous contrast. Sequences included sagittal and axial T1-weighted SE, axial diffusion-weighted FS SE, axial T2*-weighted GRE, axial T2-weighted FLAIR, and axial T2-weighted FSE. Postcontrast axial and coronal T1-weighted SE was obtained. Apparent diffusion coefficient (ADC) maps were created. COMPARISON: None. FINDINGS: There are numerous scattered foci of restricted diffusion with associated increased T2 signal including the in right basal ganglia, bilateral temporal, parietal and frontal and occipital lobes and bilateral cerebellar hemispheres consistent with acute infarctions. The 2 largest regions on the right cerebellum and right occipital lobe with remaining lesions all measuring less than 1 cm. No intracranial hemorrhage or abnormal intracranial mass lesion. There are scattered areas of nonspecific increased T2-weighted signal intensity in the cerebral white matter, predominantly involving the deep and periventricular white matter. There are no intraparenchymal signal abnormalities seen on the other pulse sequences. The ventricles are symmetric and normal in size. There are no abnormal extra-axial fluid collections. Flow voids are seen in the cerebral arteries on the T2-weighted sequences consistent with their expected patency. Changes of bilateral intraocular lens replacement. Minimal amount of dependently layering fluid in the right maxillary sinus. IMPRESSION: 1. Numerous small scattered infarcts scattered throughout the bilateral cerebral hemispheres in the right basal ganglia and bilateral cerebellar hemispheres, the largest in the right occipital lobe and right cerebellar hemisphere. The distribution involving both anterior and posterior circulations on both the left and right would favor a shower of emboli originating at or proximal to the ascending aorta, most likely at the heart. Reviewed, dictated and finalized at location A. [employer]
[2025-10-12 13:40] LABS: Cholesterol 161 mg/dL (0-200); HDL Direct 68 mg/dL; Triglycerides 97 mg/dL (<150)
--- NOTE | 2025-10-12 14:23 | P.PNIM_ITS ---
Progress Note: A&P Assessment and Plan (1) Non-ST elevation AR (NSTEMI): Code(s): I21.4 - Non-ST elevation (NSTEMI) myocardial infarction Status: Acute (2) Generalized weakness: Code(s): R53.1 - Weakness Status: Acute (3) Back pain: Code(s): M54.9 - Dorsalgia, unspecified Status: Acute Plan 85-year-old female patient to has a history of hyperlipidemia, congestive heart failure, and hypertension, presented with generalized weakness, back pain.EKG was read is sinus rhythm possible left atrial enlargement. Left bundle-branch block. She has some T-wave inversions in lead 1 ST depression in lead 2 with inverted T-wave. Head CT was read as no acute intracranial abnormalities. Was started on heparin drip. Admitted for further workup. Cardiology was consulted. Acute stroke MRI of brain:Numerous bilateral infarct. Concerning for emboli from the heart. Neurology team on board. TTE negative for acute abnormality, LVEF 30-35%. CTA brain and carotid pending this started premedication with prednisone with patient's history of contrast allergy Continue with aspirin and Plavix. Reviewed neurologist recommendation. Continue with Keppra. 1.(1) Non-ST elevation AR (NSTEMI): Continue with tele monitoring her troponin were noted to be elevated at 1.4, 1.32, 1.33- her EKG does demonstrate a LBBB but this is not new History of combined systolic and diastolic CHF Elevated proBNP Continue with IV Lasix losartan on hold with acute stroke Continue with aspirin and statin 2. Lower back pain: CT abdomen was unremarkable CT lumbar spine negative for acute abnormality UA was negative for UTI CT head with no acute process 3. DVT prophylaxis: On heparin drip 4. Code status: Full 5. Disposition: Pending improvement Subjective Date/time seen: 10/12/25 14:23 Interval history: Patient was seen examined bedside. She is alert oriented x4. Denies any chest pain, shortness off breath, abdominal pain, nausea vomiting. I reviewed blood test. WBC 10.1 Reviewed MRI of brain. Numerous bilateral infarct. Concerning for emboli from the heart. Neurology team on board. TTE negative for acute abnormality, LVEF 30-35%. CTA brain and carotid pending. Continue with aspirin and Plavix. Reviewed neurologist recommendation. Continue with Keppra. Discussed with [facility] transfer center and neurologist. Waiting for hospitalist to call me back for acceptance Review of Systems Review of Systems: All systems reviewed & are unremarkable except as noted in HPI and below Constitutional: Constitutional: Reports as per HPI and Reports no additional constitutional complaints Eyes: Eyes: Reports as per HPI and Reports no additional eye complaints ENT: Reports system reviewed and no additional complaints, except as documented and Reports Normal hearing present Cardiovascular: Cardiovascular: Reports no additional cardiovascular complaints Respiratory: Respiratory: Reports as per HPI and Reports no additional respiratory complaints Gastrointestinal: Gastrointestinal: Reports as per HPI and Reports no additional gastrointestinal complaints Genitourinary: Genitourinary: Reports no additional female genitourinary complaints Musculoskeletal: Musculoskeletal: Reports no additional musculoskeletal complaints Integumentary/Breasts: Skin/Breast: Reports system reviewed and no additional complaints, except as docu Neurologic: Reports system reviewed and no additional complaints, except as documented and Reports Normal hearing present Psychiatric: Psychiatric: Reports no additional psychiatric complaints and Reports as per HPI Hematologic/Lymphatic: Hematologic/Lymphatic: Reports no additional hematologic/lymphatic complaints Allergic/Immunologic: Allergic/Immunologic: Reports no additional allergic/immunologic complaints Exam Const: General: cooperative, healthy appearing, comfortable, no acute distress, well developed, awake, Physically active, average body habitus and well nourished Nutritional Appearance: average body habitus and well nourished Orientation/consciousness: oriented to person, oriented to place and oriented to time Other: She is a poor historian HENMT: Head: normal to inspection, No palpable skull fracture present, normocephalic, atraumatic and abrasion Other: She is very hard of hearing bilaterally. Eyes: General: appearance normal, both eyes and all related structures Alignment and Position: alignment normal Periorbital: periorbital findings normal Eyelids: eyelids normal Neck: Neck: normal visual inspection, full ROM and no lymphadenopathy Chest: Chest palpation & inspection: normal inspection of the chest Resp: Effort & Inspection: normal respiratory effort Auscultation: clear to auscultation bilaterally Cardio: Palpation: normal PMI Rate: regular rate Rhythm: regular rhythm Heart sounds: S1 normal heart sound present and S2 normal heart sound present Peripheral pulses: Peripheral pulses 2+ throughout GI: Inspection: normal to inspection Auscultation: normal bowel sounds Rectal Exam: deferred : General: Yes no CVA tenderness Back/Spine/Pelvis: Back: no CVA tenderness Skin: General skin exam: normal color Lesions: no lesions Rashes: no rashes Trauma: no lacerations or abrasions Wounds: no wounds Hair: normal Nails: normal Neuro: General: oriented to person, oriented to place and oriented to time Cranial nerves: Yes Normal hearing present Speech: normal speech Extrem: General: normal to inspection Right upper extremity: normal to inspection and shoulder/upper arm Left upper extremity: normal to inspection and shoulder/upper arm Right lower extremity: normal to inspection Left lower extremity: normal to inspection Psych: Appearance: grossly normal Mental Status: mental status grossly normal Speech and movement: Normal speech and movement present Affect: normal affect Attitude: cooperative Objective Data Vital Signs Vital Signs: Vital Signs - 24 hr 10/11/25 16:00 10/11/25 16:00 10/11/25 16:20 Temperature 98.1 F Pulse Rate 94 94 87 Respiratory Rate 18 18 Blood Pressure 150/80 H Pulse Oximetry 93 93 Oxygen Delivery Room Air 10/11/25 18:00 10/11/25 19:54 10/11/25 20:00 Temperature 97.8 F Pulse Rate 90 84 Respiratory Rate 16 Blood Pressure 151/75 H Pulse Oximetry 94 Oxygen Delivery Room Air 10/11/25 20:00 10/11/25 22:00 10/11/25 23:01 Temperature 98 F Pulse Rate 90 88 83 Respiratory Rate 20 Blood Pressure 168/73 H Pulse Oximetry 95 Oxygen Delivery 10/11/25 23:53 10/12/25 00:00 10/12/25 02:00 Temperature Pulse Rate 71 74 Respiratory Rate Blood Pressure Pulse Oximetry Oxygen Delivery Room Air 10/12/25 04:00 10/12/25 04:00 10/12/25 06:00 Temperature Pulse Rate 88 72 74 Respiratory Rate 20 Blood Pressure Pulse Oximetry 96 Oxygen Delivery Room Air 10/12/25 08:00 10/12/25 08:17 10/12/25 09:14 Temperature 98.1 F Pulse Rate 86 87 97 Respiratory Rate 16 Blood Pressure 149/84 H Pulse Oximetry 100 Oxygen Delivery 10/12/25 10:00 10/12/25 12:00 Temperature 98.2 F Pulse Rate 96 88 Respiratory Rate 20 Blood Pressure 136/75 Pulse Oximetry 98 Oxygen Delivery Intake/Output Intake/Output: Intake & Output 10/09/25 10/10/25 10/11/2520/25 23:59 23:59 23:59 23:59 Intake Total 1480.7 560 Output Total 2580 600 Balance -1099.3 -40 Meds/Results Medications: Active Medications Generic Name Dose Route Start Last Admin Trade Name Freq PRN Reason Stop Dose Admin Acetaminophen 650 mg 10/11/25 19:33 10/11/25 19:58 Acetaminophen 325 Mg Tablet PO 650 mg Q4H PRN Administration Headache Aspirin 81 mg 10/11/25 08:00 10/12/25 09:14 Aspirin 81 Mg Chewable Tablet PO 81 mg DAILY@0800 SAW Administration Atorvastatin Calcium 80 mg 10/11/25 21:00 10/11/25 19:59 Atorvastatin 40 Mg Tablet PO Not Given QHS SAW Diphenhydramine HCl 50 mg 10/13/25 07:00 Diphenhydramine Hcl Cap 25 Mg Capsule PO 10/13/25 07:01 ONCE ONE Docusate Sodium 100 mg 10/12/25 21:00 Docusate Sodium 100 Mg Capsule PO Q12HR SAW Furosemide 40 mg 10/11/25 09:00 10/12/25 09:15 Furosemide Inj 40 Mg/4 Ml Vial IV PUSH 40 mg Q12HR SAW Administration Losartan Potassium 100 mg 10/11/25 09:00 10/11/25 08:23 Losartan Potassium 50 Mg Tablet PO 100 mg On Hold: 10/11/25 19:25 DAILY [facility] Administration Metoprolol Succinate 50 mg 10/11/25 09:00 10/12/25 09:14 Metoprolol Succinate Ext Rel 50 Mg Tabcr PO 50 mg DAILY SAW Administration Ondansetron HCl 4 mg 10/11/25 00:51 Ondansetron Inj 4 Mg/2 Ml Vial IV PUSH Q4H PRN Nausea Pantoprazole Sodium 40 mg 10/11/25 09:00 10/12/25 09:15 Pantoprazole 40 Mg Tablet PO 40 mg QAM SAW Administration Perflutren Lipid Microsphere 0 ml 10/11/25 11:17 Perflutren Lipid Microspheres 1.5 Ml Vial Diluted To 10 Ml Total Volume IV PUSH 10/14/25 11:17 ONCE PRN adequate visualization Protocol Prednisone 40 mg/ Prednisone 50 mg 10/12/25 19:00 10 mg PO 10/13/25 07:01 Q6H [facility] Radiology Results: ITS Impressions Abdomen/Pelvis CT 10/11/25 07:08 IMPRESSION: 1. Small sliding hiatal hernia. 2. Uterine fibroids. Chest X-Ray 10/11/25 07:29 IMPRESSION: 1. No acute cardiopulmonary findings given portable technique. Lumbar Spine CT 10/11/25 14:57 IMPRESSION: 1. Advanced degenerative changes in the lower lumbar spine with moderate possibly severe spinal canal stenosis at L4-5. 2. No gross acute or aggressive bony or soft tissue process seen. 3. Consider correlation with lumbar spine MRI for optimal evaluation as clinically needed. Head CT 10/11/25 18:05 IMPRESSION: 1. No acute intracranial lesions in this limited noncontrast examination. If symptoms warrant further evaluation with MRI is suggested. No interval change from previous study of same date. Brain MRI 10/12/25 10:45 IMPRESSION: 1. Numerous small scattered infarcts scattered throughout the bilateral cerebral hemispheres in the right basal ganglia and bilateral cerebellar hemispheres, the largest in the right occipital lobe and right cerebellar hemisphere. The distrib ution involving both anterior and posterior circulations on both the left and right would favor a shower of emboli originating at or proximal to the ascending aorta, most likely at the heart. Labs Labs: Laboratory Results - last 24 hr 10/11/25 10/11/25 10/11/25 14:03 19:01 21:26 WBC RBC Hgb Hct MCV MCH MCHC RDW Plt Count MPV Immature Gran % (Auto) Neut % (Auto) Lymph % (Auto) [place] % (Auto) Eos % (Auto) Baso % (Auto) Lymph # (Auto) [place] # (Auto) Eos # (Auto) Baso # (Auto) Abs Immat Gran (auto) Absolute Neuts (auto) Absolute Nucleated RBC Nucleated RBC % APTT 137.7 H Sodium Potassium Chloride Carbon Dioxide Anion Gap BUN Creatinine Estim Creat Clear Calc Estimated GFR Glucose POC Capillary Glucose 135 H 129 H Calcium Triglycerides Cholesterol LDL Cholesterol Direct HDL Direct 10/12/25 10/12/25 03:53 13:18 WBC 10.1 H RBC 4.82 Hgb 14.8 Hct 44.7 MCV 92.7 MCH 30.7 MCHC 33.1 RDW 13.0 Plt Count 232 MPV 10.1 Immature Gran % (Auto) 0.3 Neut % (Auto) 68.7 Lymph % (Auto) 18.8 [place] % (Auto) 10.8 H Eos % (Auto) 1.1 Baso % (Auto) 0.3 Lymph # (Auto) 1.91 [place] # (Auto) 1.1 H Eos # (Auto) 0.1 Baso # (Auto) 0.0 Abs Immat Gran (auto) 0.03 Absolute Neuts (auto) 7.0 H Absolute Nucleated RBC 0.000 Nucleated RBC % 0.0 APTT Sodium 133 L Potassium 4.1 Chloride 100 Carbon Dioxide 23 Anion Gap 10 BUN 19 H Creatinine 0.80 Estim Creat Clear Calc 42 Estimated GFR > 60 Glucose 101 POC Capillary Glucose Calcium 9.5 Triglycerides 97 Cholesterol 161 LDL Cholesterol Direct 68 HDL Direct 68 Quality VTE Prophylaxis VTE prophylaxis: pharmacologic ordered
[2025-10-12 14:52] LABS: Vitamin B12 980.0 pg/mL (239-931)
[2025-10-12] MEDS: levETIRAcetam 1000MG/NACL100ML 1,000 MG/100 ML BAG 400 MG IVPB (15:46)
[2025-10-12] MEDS: levETIRAcetam 500MG/NACL 100ML 500 MG/100 ML BAG 400 MG IVPB (16:11)
--- NOTE | 2025-10-12 16:41 | PM.TDS ---
Transfer Discharge Sum: Prov Provider Date of admission: 10/12/25 10:21 Primary care physician: Bekah Lieberman APRN Admitting clinician: Bryan Hung MD Consults: 10/11/25 00:52 Consult to Physician Routine Comment: Notified Caitlyn Garcia of consult Consulting Provider: Qasim Chase residential sales manager/MD group to consult: Cardiology Reason for consultation: NSTEMI, CHF Has provider been notified: Yes 10/11/25 19:08 Consult to Physician Routine Comment: Spoke with and notified him of consult Consulting Provider: Ronnie Lu residential sales manager/ group to consult: Neurology Reason for consultation: CVA/Seizures Has provider been notified: Yes 10/12/25 Consult to Pulmonary Rehabilitation Routine Pulmonary Rehab Diagnosis:: chf DS: Admitting Diagnosis Discharge Date 10/12/25 Admitting Diagnosis Acute stroke DS: Discharge Diagnosis Discharge Diagnosis (1) Non-ST elevation NM (NSTEMI): Code(s): I21.4 - Non-ST elevation (NSTEMI) myocardial infarction Status: Acute (2) Generalized weakness: Code(s): R53.1 - Weakness Status: Acute (3) Back pain: Code(s): M54.9 - Dorsalgia, unspecified Status: Acute Plan 85-year-old female patient to has a history of hyperlipidemia, congestive heart failure, and hypertension, presented with generalized weakness, back pain.EKG was read is sinus rhythm possible left atrial enlargement. Left bundle-branch block. She has some T-wave inversions in lead 1 ST depression in lead 2 with inverted T-wave. Head CT was read as no acute intracranial abnormalities. Was started on heparin drip. Admitted for further workup. Cardiology was consulted. Acute stroke MRI of brain:Numerous bilateral infarct. Concerning for emboli from the heart. Neurology team on board. TTE negative for acute abnormality, LVEF 30-35%. CTA brain and carotid pending this started premedication with prednisone with patient's history of contrast allergy Continue with aspirin and Plavix. Reviewed neurologist recommendation. Continue with Keppra. patient was accepted to be transfer to [facility] 1.(1) Non-ST elevation NM (NSTEMI): Continue with tele monitoring her troponin were noted to be elevated at 1.4, 1.32, 1.33- her EKG does demonstrate a LBBB but this is not new History of combined systolic and diastolic CHF Elevated proBNP Continue with IV Lasix losartan on hold with acute stroke Continue with aspirin and statin 2. Lower back pain: CT abdomen was unremarkable CT lumbar spine negative for acute abnormality UA was negative for UTI CT head with no acute process 3. DVT prophylaxis: On heparin drip 4. Code status: Full 5. Disposition: Pending improvement Transfer Discharge Sum: Med Medications Active and Home Medications: Home Medications atorvastatin 10 mg tablet 10 mg PO QHS 01/28/22 [History Confirmed 10/11/25] losartan 50 mg tablet 100 mg (2 x 50 mg) PO DAILY #90 tabs 03/11/23 [Rx Confirmed 10/11/25] lactobacillus combination no.9 4 billion cell capsule (Adult 50 Plus Probiotic) 4,000 mmu cells PO DAILY 03/10/24 [History Confirmed 10/11/25] furosemide 20 mg tablet 20 mg PO DAILY 04/12/25 [History Confirmed 10/11/25] metoprolol succinate 100 mg tablet,extended release 24 hr 50 mg PO DAILY 04/12/25 [History Confirmed 10/11/25] omeprazole 20 mg capsule,delayed release 20 mg PO DAILY 04/12/25 [History Confirmed 10/11/25] simethicone 125 mg chewable tablet 125 mg PO BID #180 tabs 10/06/25 [Rx Confirmed 10/11/25] triamcinolone acetonide 0.5 % topical ointment 1 applic topical BID #60 grams 10/06/25 [Rx Confirmed 10/11/25] Active Medications Acetaminophen (Acetaminophen 325 Mg Tablet) 650 mg PO Q4H PRN PRN Reason: Headache Last Admin: 10/11/25 19:58 Dose: 650 mg Aspirin (Aspirin 81 Mg Chewable Tablet) 81 mg PO DAILY@0800 [facility] Last Admin: 10/12/25 09:14 Dose: 81 mg Atorvastatin Calcium (Atorvastatin 40 Mg Tablet) 80 mg PO QHS [facility] Last Admin: 10/11/25 19:59 Dose: Not Given Diphenhydramine HCl (Diphenhydramine Hcl Cap 25 Mg Capsule) 50 mg PO ONCE ONE Stop: 10/13/25 07:01 Docusate Sodium (Docusate Sodium 100 Mg Capsule) 100 mg PO Q12HR [facility] Enoxaparin Sodium (Enoxaparin 80 Mg/0.8 Ml Syringe) 75 mg SUB-Q Q12H [facility] Furosemide (Furosemide Inj 40 Mg/4 Ml Vial) 40 mg IV PUSH Q12HR [facility] Last Admin: 10/12/25 09:15 Dose: 40 mg Levetiracetam 750 mg/ Dextrose 107.5 mls @ 430 mls/hr IVPB Q12H SAW Losartan Potassium (Losartan Potassium 50 Mg Tablet) 100 mg PO DAILY SAW On Hold: 10/11/25 19:25 Last Admin: 10/11/25 08:23 Dose: 100 mg Metoprolol Succinate (Metoprolol Succinate Ext Rel 50 Mg Tabcr) 50 mg PO DAILY [facility] Last Admin: 10/12/25 09:14 Dose: 50 mg Ondansetron HCl (Ondansetron Inj 4 Mg/2 Ml Vial) 4 mg IV PUSH Q4H PRN PRN Reason: Nausea Pantoprazole Sodium (Pantoprazole 40 Mg Tablet) 40 mg PO QAM [facility] Last Admin: 10/12/25 09:15 Dose: 40 mg Perflutren Lipid Microsphere (Perflutren Lipid Microspheres 1.5 Ml Vial Diluted To 10 Ml Total Volume) 0 ml IV PUSH ONCE PRN; Protocol PRN Reason: adequate visualization Stop: 10/14/25 11:17 Prednisone 40 mg/ Prednisone (10 mg) 50 mg PO Q6H SAW Stop: 10/13/25 07:01 Transfer Discharge Sum: Hosp Hospital Course Hospital course: 85-year-old female patient to has a history of hyperlipidemia, congestive heart failure, and hypertension, presented with generalized weakness, back pain.EKG was read is sinus rhythm possible left atrial enlargement. Left bundle-branch block. She has some T-wave inversions in lead 1 ST depression in lead 2 with inverted T-wave. Head CT was read as no acute intracranial abnormalities. Was started on heparin drip. Admitted for further workup. Patient had possible seizure activity overnight. MRI was ordered. Neurology was consulted. CT head was negative. MRI of brain:Numerous bilateral infarct. Concerning for emboli from the heart. Neurology team on board. TTE negative for acute abnormality, LVEF 30-35%. CTA brain and carotid pending this started premedication with prednisone with patient's history of contrast allergy Continue with aspirin and Plavix. Reviewed neurologist recommendation. Continue with Keppra. patient was accepted to be transfer to [facility]. Patient Condition: Stable Time Spent with Patient Time attestation: Total time spent providing and/or coordinating transfer services: Total time spent: Greater than 30 minutes Exam Const: General: cooperative, healthy appearing, comfortable, no acute distress, well developed, awake, Physically active, average body habitus and well nourished Nutritional Appearance: average body habitus and well nourished Orientation/consciousness: oriented to person, oriented to place and oriented to time Other: She is a poor historian HENMT: Head: normal to inspection, No palpable skull fracture present, normocephalic, atraumatic and abrasion Other: She is very hard of hearing bilaterally. Eyes: General: appearance normal, both eyes and all related structures Alignment and Position: alignment normal Periorbital: periorbital findings normal Eyelids: eyelids normal Neck: Neck: normal visual inspection, full ROM and no lymphadenopathy Chest: Chest palpation & inspection: normal inspection of the chest Resp: Effort & Inspection: normal respiratory effort Auscultation: clear to auscultation bilaterally Cardio: Palpation: normal PMI Rate: regular rate Rhythm: regular rhythm Heart sounds: S1 normal heart sound present and S2 normal heart sound present Peripheral pulses: Peripheral pulses 2+ throughout GI: Inspection: normal to inspection Auscultation: normal bowel sounds Rectal Exam: deferred : General: Yes no CVA tenderness Back/Spine/Pelvis: Back: no CVA tenderness Skin: General skin exam: normal color Lesions: no lesions Rashes: no rashes Trauma: no lacerations or abrasions Wounds: no wounds Hair: normal Nails: normal Neuro: General: oriented to person, oriented to place and oriented to time Cranial nerves: Yes Normal hearing present Speech: normal speech Extrem: General: normal to inspection Right upper extremity: normal to inspection and shoulder/upper arm Left upper extremity: normal to inspection and shoulder/upper arm Right lower extremity: normal to inspection Left lower extremity: normal to inspection Psych: Appearance: grossly normal Mental Status: mental status grossly normal Speech and movement: Normal speech and movement present Affect: normal affect Attitude: cooperative DS: Data Data Completed and Pending Labs on day of discharge: Labs from last 24 hours 10/12/25 10/12/25 10/11/25 13:18 03:53 21:26 WBC 10.1 H RBC 4.82 Hgb 14.8 Hct 44.7 MCV 92.7 MCH 30.7 MCHC 33.1 RDW 13.0 Plt Count 232 MPV 10.1 Immature Gran % (Auto) 0.3 Neut % (Auto) 68.7 Lymph % (Auto) 18.8 [place] % (Auto) 10.8 H Eos % (Auto) 1.1 Baso % (Auto) 0.3 Lymph # (Auto) 1.91 [place] # (Auto) 1.1 H Eos # (Auto) 0.1 Baso # (Auto) 0.0 Abs Immat Gran (auto) 0.03 Absolute Neuts (auto) 7.0 H Absolute Nucleated RBC 0.000 Nucleated RBC % 0.0 Sodium 133 L Potassium 4.1 Chloride 100 Carbon Dioxide 23 Anion Gap 10 BUN 19 H Creatinine 0.80 Estim Creat Clear Calc 42 Estimated GFR > 60 Glucose 101 POC Capillary Glucose 129 H Calcium 9.5 Triglycerides 97 Cholesterol 161 LDL Cholesterol Direct 68 HDL Direct 68 Vitamin B12 980.0 H Methylmalonic Acid Pending Vitamin D 25-Hydroxy Pending Folate > 20.0 H 10/11/25 19:01 WBC RBC Hgb Hct MCV MCH MCHC RDW Plt Count MPV Immature Gran % (Auto) Neut % (Auto) Lymph % (Auto) [place] % (Auto) Eos % (Auto) Baso % (Auto) Lymph # (Auto) [place] # (Auto) Eos # (Auto) Baso # (Auto) Abs Immat Gran (auto) Absolute Neuts (auto) Absolute Nucleated RBC Nucleated RBC % Sodium Potassium Chloride Carbon Dioxide Anion Gap BUN Creatinine Estim Creat Clear Calc Estimated GFR Glucose POC Capillary Glucose 135 H Calcium Triglycerides Cholesterol LDL Cholesterol Direct HDL Direct Vitamin B12 Methylmalonic Acid Vitamin D 25-Hydroxy Folate
[2025-10-12] MEDS: ENOXAPARIN 80 MG/0.8 ML SYRINGE 75 MG SUB-Q (18:43)
== END 2025-10-12 19:07 | disposition short-term general hospital (02) | DRG 280 ==
LOC: ANHED 23:34 → ANHIMU 10-11 01:51
PROVIDERS: Internal Medicine; Nurse Practitioner; Psychiatry & Neurology Neurology; Admitting Provider Internal Medicine; Emergency Provider Emergency Medicine; PCP Nurse Practitioner Family; Visit Provider Internal Medicine
DX: I21.4 Non-ST elevation (NSTEMI) myocardial infarction (principal); I50.43 Acute on chronic combined systolic (congestive) and diastolic (congestive) heart failure; I63.9 Cerebral infarction, unspecified; I42.8 Other cardiomyopathies; I11.0 Hypertensive heart disease with heart failure; R56.9 Unspecified convulsions; M54.9 Dorsalgia, unspecified; E78.5 Hyperlipidemia, unspecified; I44.7 Left bundle-branch block, unspecified; R41.0 Disorientation, unspecified; H54.7 Unspecified visual loss; K21.9 Gastro-esophageal reflux disease without esophagitis; R73.03 Prediabetes; M85.80 Other specified disorders of bone density and structure, unspecified site; I34.0 Nonrheumatic mitral (valve) insufficiency; I87.2 Venous insufficiency (chronic) (peripheral); Z85.828 Personal history of other malignant neoplasm of skin
CPT/HCPCS: 36415; 70450; 70551; 71045; 72131; 74177; 80048; 80053; 80061; 81001; 82306; 82607; 82746; 82948; 83605; 83690; 83735; 83880; 83921; 84145; 84443; 84484; 85025; 85610; 85730; 87637; 93005; 96361; 96374; 97161; 97530; 99285; A9270; C8929; G0378; J1644; J1650; J1938; J1953; J2359; J7030; Q9957; Q9967